=== PATIENT | male | born 1960 | race Caucasian/White ===

== ENCOUNTER 2021-11-21 14:57 | Inpatient (IN) | payer OTHER ==
[~2021-11-21] VITALS: Ht 177.8 cm; Wt 78.5 kg
--- NOTE | 2021-11-21 | NUR ---
RN NOTE RECEIVED PATIENT FROM ER. PATIENT IS ALERT AND ORIENTED X3. ABLE TO MAKE NEEDS KNOWN. UPSET AT THIS TIME HOWEVER COOPERATIVE. BREATHING EVEN AND UNLABORED. NO RESPIRATORY DISTRESS NOTED. DENIES CHEST PAIN AT THIS TIME. HOB ELEVATED 35 DEGREES. SKIN WARM AND DRY. NOTED WITH TWO LEFT FOREARM 20G, PATENT, FLUSHED WITH NO INFILTRATION. NOTED WITH COLOSTOMY ON LEFT LOWER ABDOMEN, NOTED WITH BROWN/SOFT STOOL. NOTED WITH INDWELLING GRANT CATHETER, DRAINING RICHIE YELLOW URINE. NO HEMATURIA NOTED. GRANT INTACT. SKIN ASSESSMENT DONE, IN HOUSE WOUND TREATMENT DONE. WOUND CONSULT ORDERED. PHOTOS FILED IN PATIENT CHART. BED LOW, IN LOCKED POSITION, CALL LIGHT WITHIN REACH. Addendum: 11/22/21 at 0132 by TROY SILVER RN WRONG TIME ENTERED
--- NOTE | 2021-11-21 14:57 | NUR ---
PT [facility]IB [facility]ACHYCARDIA. PT IS AAOX2, NOT IN RESPIRATORY DISTRESS, HOOKED TO SPRAY BLENDER, KEPT RESTED AND COMFORTABLE. WILL CONTINUE TO MONITOR.
--- NOTE | 2021-11-21 15:03 | NUR ---
IV LINE ESTABLISHED BLOOD DRAWN AND SENT TO LAB.
--- NOTE | 2021-11-21 15:38 | NUR ---
AT BEDSIDE FOR EVAL.
[2021-11-21] MEDS ORDERED: MORPHINE SULFATE INJ 2 MG/ML DISP.SYRIN IV ONE ×2 (16:00→20:00)
[2021-11-21] MEDS ORDERED: ONDANSETRON HCL/PF 4 MG/2 ML VIAL IVP ONE (16:00)
[2021-11-21] MEDS ORDERED: ONDANSETRON HCL/PF 4 MG/2 ML VIAL ONE (16:04)
[2021-11-21] MEDS ORDERED: MORPHINE SULFATE INJ 4 MG/ML DISP.SYRIN ONE ×2 (16:05→19:54)
--- NOTE | 2021-11-21 16:05 | NUR ---
BASIN TENDER AT BEDSIDE FOR XRAY.
[2021-11-21 16:18] LABS: BASOPHILS # (AUTO) 0.1 K/uL (0.0-0.2); BASOPHILS % (AUTO) 0.8 % (0.0-2.0); EOSINOPHILS % (AUTO) 1.2 % (0.0-6.0); HEMATOCRIT 27 % (39-51); HEMOGLOBIN 8.2 g/dL (13.5-17.5); LYMPHOCYTES # (AUTO) 1.2 K/uL (0.8-4.8); LYMPHOCYTES % (AUTO) 14.4 % (20.0-44.0); MEAN CORPUSCULAR HGB CONC 30 g/dl (31.0-36.0); MEAN CORPUSCULAR VOLUME 70 fL (80-96); MONOCYTES # (AUTO) 0.5 K/uL (0.1-1.30); NEUTROPHILS # (AUTO) 6.6 K/uL (1.8-8.9); NEUTROPHILS % (AUTO) 77.6 % (43.0-81.0); PLATELET COUNT (AUTO) 659 K/uL (150-450); RED BLOOD CELL COUNT(AUTO) 3.87 MIL/uL (4.5-6.0); WHITE BLOOD COUNT (AUTO) 8.5 K/uL (4.3-11.0)
--- NOTE | 2021-11-21 17:05 | NUR ---
PRINTER'S DEVIL AT BEDSIDE FOR DUPLEX SCAN.
[2021-11-21 17:09] LABS: CALCIUM, SERUM 8.5 mg/dL (8.5-10.1); CARBON DIOXIDE 29 mmol/L (21-32); CHLORIDE 92 mmol/L (98-107); CREATININE 0.5 mg/dL (0.6-1.3); GLUCOSE 130 mg/dL (74-106); POTASSIUM 4.2 mmol/L (3.5-5.1); SODIUM SERUM 127 mmol/L (136-145); UREA NITROGEN, BLOOD 11 mg/dL (7-18)
[2021-11-21 17:10] LABS: D-DIMER 3.55 mg/L(FEU (0.17-0.50)
[2021-11-21 17:25] LABS: ALANINE AMINOTRANSFERASE 23 U/L (12-78); ALKALINE PHOSPHATASE 143 U/L (46-116); ASPARTATE AMINOTRANSFERASE 23 U/L (15-37); BILIRUBIN,DIRECT 0.1 mg/dL (0.0-0.2); BILIRUBIN,TOTAL 0.4 mg/dL (0.2-1.0); TOTAL PROTEIN, SERUM 7.8 g/dL (6.4-8.2)
[2021-11-21 17:29] LABS: ALBUMIN 1.4 g/dL (3.4-5.0)
[2021-11-21] MEDS ORDERED: DILTIAZEM HCL 25 MG IV ONE (18:00)
[2021-11-21] MEDS ORDERED: DILTIAZEM HCL 50 MG IV IV ONE (18:00)
--- NOTE | 2021-11-21 18:25 | NUR ---
MOVE SHEET SUBMITTED AND CALLED FOR TELE BED.
[2021-11-21] MEDS ORDERED: IOHEXOL-350 100 ML VIAL IV ONE (19:39)
[2021-11-21] MEDS ORDERED: IV NS 0.9% 250 ML IV ONE (19:39)
--- NOTE | 2021-11-21 22:06 | NUR ---
tele 107
--- NOTE | 2021-11-21 22:22 | NUR ---
REPORT GIVEN TO ELSA HYDE FOR BOZENA
[2021-11-21] MEDS ORDERED: MAGNESIUM HYDROXIDE 30 ML UDC PO PRN (23:30)
[2021-11-21] MEDS ORDERED: ONDANSETRON HCL/PF 4 MG/2 ML VIAL IVP PRN (23:30)
[2021-11-21] MEDS ORDERED: Z GUARD REMEDY 4 OZ OINT TP PRN (23:30)
[2021-11-21] MEDS ORDERED: MAG HYDROX/AL HYDROX/SIMETH 30 ML UDC PO PRN (23:30)
[2021-11-22] VITALS: BP 104/55
--- NOTE | 2021-11-22 | NUR ---
RN NOTE RECEIVED PATIENT FROM ER. PATIENT IS ALERT AND ORIENTED X3. ABLE TO MAKE NEEDS KNOWN. UPSET AT THIS TIME HOWEVER COOPERATIVE. BREATHING EVEN AND UNLABORED. NO RESPIRATORY DISTRESS NOTED. DENIES CHEST PAIN AT THIS TIME. HOB ELEVATED 35 DEGREES. SKIN WARM AND DRY. NOTED WITH TWO LEFT FOREARM 20G, PATENT, FLUSHED WITH NO INFILTRATION. NOTED WITH COLOSTOMY ON LEFT LOWER ABDOMEN, NOTED WITH BROWN/SOFT STOOL. NOTED WITH INDWELLING GRANT CATHETER, DRAINING RICHIE YELLOW URINE. NO HEMATURIA NOTED. GRANT INTACT. SKIN ASSESSMENT DONE, IN HOUSE WOUND TREATMENT DONE. WOUND CONSULT ORDERED. PHOTOS FILED IN PATIENT CHART. BED LOW, IN LOCKED POSITION, CALL LIGHT WITHIN REACH.
--- NOTE | 2021-11-22 00:01 | NUR ---
RN NOTE PATIENT REFUSED BLOOD DRAW FROM TAPPER BIT
[2021-11-22] MEDS: ENOXAPARIN SODIUM 40 MG/0.4 ML DISP.SYRIN SQ SCH ×2 (00:08→20:27)
[2021-11-22] MEDS: IV NS 0.9% 1,000 ML IV PRN ×2 (00:10→19:46)
[2021-11-22 04:00] VITALS: BP 99/54
--- NOTE | 2021-11-22 05:47 | NUR ---
RN NOTE PATIENT REFUSED AM LABS. EXPLAINED THE REASON FOR BLOOD DRAW 3X WITH MILLINERY DESIGNER AT BEDSIDE. STILL REFUSED. PATIENT BECAME VERBALLY AGGRESSIVE DURING EXPLANATION. MILLINERY DESIGNER WILL RETURN AT A LATER TIME.
--- NOTE | 2021-11-22 07:11 | NUR ---
RN NOTES PATIENT REFUSED BLOOD DRAW. EXPLAINED RISKED AND BENEFITS BUT PATIENT STRONGLY REFUSED. STARTED TO CUSS. DR. ELENA MADE AWARE. PER MD TO ENCOURAGE PATIENT AND EXPLAIN RISK AND BENEFITS. WILL CONTINUE TO ENCOURAGE PATIENT TO ADHERE WITH TREATMENT PLAN.
--- NOTE | 2021-11-22 07:25 | NUR ---
RN OPENING NOTES RECEIVED PATIENT IN BED, AWAKE, ALERT AND VERBALLY RESPONSIVE, NO SIGNS OF ACUTE DISTRESS NOTED. ON ROOM AIR, TOLERATING WELL, NO SOB NOTED. ON TELE MONITOR, SHOWING SINUS TACHYCARDIA, HR @ 108. NO SIGNS OF CARDIAC DISTRESS NOTED. WITH IVF OF NS RUNNING @100ML/HR. IV ACCESS ON LAC AND LFA #20G, INTACT AND PATENT. F/C INTACT DRAINING CLEAR YELLOW URINE. NO C/O PAIN OR DISCOMFORT. SAFETY MEASURE IN PLACE. BED IN LOWEST LOCKED POSITION, SR UP X2, CALL LIGHT PLACED WITHIN EASY REACH. WILL CONTINUE TO MONITOR.
[2021-11-22 08:00] VITALS: BP 104/70
[2021-11-22] MEDS: PANTOPRAZOLE 40 MG TABLET.DR PO SCH (08:08)
[2021-11-22 09:32] LABS: EOSINOPHILS % (MANUAL) 1 % (0-4); LYMPHOCYTES % (MANUAL) 12 % (16-48); MONOCYTES % (MANUAL) 9 % (0-11.0); NEUTROPHILS % (MANUAL) 78 (42-76)
[2021-11-22] MEDS ORDERED: ASCO500T10 PO (10:38)
[2021-11-22] MEDS ORDERED: ATOR40TA PO (10:42)
[2021-11-22] MEDS ORDERED: ENOX40DI SQ (10:45)
[2021-11-22] MEDS ORDERED: FERR325T24 PO (10:48)
[2021-11-22] MEDS ORDERED: FURO40TA5 PO (10:52)
[2021-11-22] MEDS ORDERED: GABA-532 PO (10:55)
[2021-11-22] MEDS ORDERED: MULT-754 PO (10:55)
[2021-11-22] MEDS ORDERED: OMEP40CA21 PO (10:57)
[2021-11-22] MEDS ORDERED: POLY17PO4 PO (10:58)
[2021-11-22] MEDS ORDERED: OXYC5CAP18 PO (11:01)
[2021-11-22] MEDS ORDERED: OXYC10TA49 PO (11:05)
[2021-11-22] MEDS ORDERED: DULO60CA45 PO (11:08)
[2021-11-22] MEDS ORDERED: ACET325C7 PO (11:10)
[2021-11-22] MEDS ORDERED: ZINC454P2 MC (11:14)
--- NOTE | 2021-11-22 11:23 | NUR ---
WOUND CARE CONSULT: PT PRESENTS WITH FOUL, PURULENT PRESSURE ULCERS (STAGE 4) TO SACRUM AND RT AND LEFT BUTTOCKS, PRESENT ON ADMISSION. PT ALSO HAS SCAR TO UPPER BACK AND UNSTAGEABLE ULCER TO RT HIP WELL LOWER EXTREMITY ULCERS/WOUNDS, ALL PRESENT ON ADMISSION. DR HORNE AND DR MCCULLOUGH NOTIFIED OF SURGICAL AND DPM CONSULT REQUESTS. SOME BLEEDING NOTED TO SACRAL AND BUTTOCK WOUNDS. RECOMMENDATIONS MADE FOR SKIN PROTECTION. DISCUSSED WITH NURSING STAFF. FIRST STEP LOW AIRLOSS MATTRESS ORDERED. PT CURSES AT TIMES AND STATES THAT HIS HANDS ARE PAINFUL. EDEMA NOTED. MD IN AGREEMENT WITH PLAN OF CARE.
[2021-11-22 12:00] VITALS: BP 104/66
--- NOTE | 2021-11-22 13:43 | NUR ---
SS Consult: SS consult for multiple pressure ulcers stage 4 infected and quadriplegic. Pt. Is a 61-year-old White male who demonstrates adequate insight to the reason for hospitalization. Per pt., he is admitted to [facility] for quadriplegia. Pt. stated that he has multiple infections. Pt. was oriented x2, alert, and cooperative. Pt. seems to be a bit confused. During interview, pt. was capable of following directions, made appropriate eye-contact, and appeared unkempt. Pt.s speech was at a normal rate and pt.s mood was elevated. Pt. reported no hx of mental health, substance abuse, suicidal ideation, or homicidal ideation. Pt. denies auditory hallucinations, visual hallucinations, paranoia, or delusions. SW explored pt.s living situation. Pt. stated that he is homeless, then stated that he resided at [facility]. Per EMR, pt. is a resident at [facility] [[phone]]. Pt. has no family nor friends out here. Pt. refused to answer any further questions. Plan: SW provided available resources and pt. rejected. SW left resources at bedside. Per CM note, pt. may return to [facility] facility upon discharge. Will follow-up with LATESHA Musa for Ombudsman report. Resources Provided: Senior Empowerment Packet.
[2021-11-22] MEDS: MORPHINE SULFATE INJ 2 MG/ML DISP.SYRIN IV PRN ×2 (14:53→20:28)
[2021-11-22 15:29] LABS: BASOPHILS # (AUTO) 0.1 K/uL (0.0-0.2); BASOPHILS % (AUTO) 0.7 % (0.0-2.0); HEMATOCRIT 23 % (39-51); LYMPHOCYTES % (AUTO) 10.4 % (20.0-44.0); MEAN CORPUSCULAR HGB CONC 30 g/dl (31.0-36.0); MEAN CORPUSCULAR VOLUME 70 fL (80-96); MONOCYTES # (AUTO) 0.8 K/uL (0.1-1.30); MONOCYTES % (AUTO) 7.9 % (2.0-12.0); NEUTROPHILS # (AUTO) 7.8 K/uL (1.8-8.9); PLATELET COUNT (AUTO) 477 K/uL (150-450); RED BLOOD CELL COUNT(AUTO) 3.23 MIL/uL (4.5-6.0); WHITE BLOOD COUNT (AUTO) 9.8 K/uL (4.3-11.0)
[2021-11-22 15:43] LABS: HEMOGLOBIN 6.8 g/dL (13.5-17.5)
[2021-11-22 16:00] VITALS: BP 106/68
[2021-11-22 16:20] LABS: BAND % (MANUAL) 1 % (0.0-5.0); EOSINOPHILS % (MANUAL) 3 % (0-4); LYMPHOCYTES % (MANUAL) 10 % (16-48); MONOCYTES % (MANUAL) 7 % (0-11.0); NEUTROPHILS % (MANUAL) 78 (42-76); REACTIVE LYMPHOCYTES 1 % (0-0)
--- NOTE | 2021-11-22 16:34 | NUR ---
RN NOTES DR. ELENA , MADE AWARE REGARDING LAB RESULT: HGB 6.8. RECEIVED ORDER TO REPEAT H/H STAT.
--- NOTE | 2021-11-22 17:05 | NUR ---
RN NOTES PATIENT REFUSED REPEAT H/H BLOOD DRAW, IN SPITE EXPLANATION OF RISKS. PATIENT STARTED CUSSING. PATIENT STRONGLY REFUSED. DR. ELENA MADE AWARE. PER MD TRY TO ADVISE PATIENT OF RISKS. WILL CONTINUE TO ENCOURAGE PATIENT.
--- NOTE | 2021-11-22 19:00 | NUR ---
RN CLOSING NOTES PATIENT IN BED, AWAKE, ALERT AND VERBALLY RESPONSIVE, NO SIGNS OF ACUTE DISTRESS NOTED. REMAINS ON ROOM AIR, TOLERATING WELL. ON TELE MONITOR, SHOWING SINUS TACHYCARDIA, HR @ 102. NO SIGNS OF CARDIAC DISTRESS NOTED. WITH IVF OF NS RUNNING @100ML/HR. IV ACCESS ON LAC AND LFA #20G, INTACT AND PATENT. F/C INTACT DRAINING CLEAR YELLOW URINE. COLOSTOMY INTACT. SAFETY MEASURES MAINTAINED. BED IN LOWEST LOCKED POSITION, SR UP X2, CALL LIGHT PLACED WITHIN EASY REACH. WILL ENDORSE TO NEXT SHIFT.
[2021-11-22 20:00] VITALS: BP 127/52
[2021-11-22 20:12] LABS: THYROID STIMULATING HORMONE 0.678 uIU/mL (0.358-3.74)
[2021-11-22] MEDS: DAKINS QUARTER STRENGTH (0.125%) 480 ML BOTTLE TOP SCH (23:00)
[2021-11-23] VITALS (10 sets, daily range): BP systolic 93–127; BP diastolic 55–69
[2021-11-23] MEDS: MORPHINE SULFATE INJ 2 MG/ML DISP.SYRIN IV PRN ×2 (03:52→16:13)
[2021-11-23] MEDS: IV NS 0.9% 1,000 ML IV PRN ×2 (05:07→18:16)
[2021-11-23 06:45] LABS: BASOPHILS % (AUTO) 0.3 % (0.0-2.0); EOSINOPHILS % (AUTO) 1.1 % (0.0-6.0); HEMATOCRIT 22 % (39-51); LYMPHOCYTES # (AUTO) 0.9 K/uL (0.8-4.8); LYMPHOCYTES % (AUTO) 8.1 % (20.0-44.0); MEAN CORPUSCULAR HGB CONC 31 g/dl (31.0-36.0); MEAN CORPUSCULAR VOLUME 69 fL (80-96); MONOCYTES # (AUTO) 0.8 K/uL (0.1-1.30); MONOCYTES % (AUTO) 7.1 % (2.0-12.0); NEUTROPHILS # (AUTO) 8.9 K/uL (1.8-8.9); NEUTROPHILS % (AUTO) 83.4 % (43.0-81.0); PLATELET COUNT (AUTO) 590 K/uL (150-450); RED BLOOD CELL COUNT(AUTO) 3.14 MIL/uL (4.5-6.0); WHITE BLOOD COUNT (AUTO) 10.6 K/uL (4.3-11.0)
--- NOTE | 2021-11-23 06:59 | NUR ---
RN notes Resting comfortably in bed with no distress noted. Breathing even and unlabored. On room air tolerating well. Complaining of wound pain, Morphne administered x 2. Vital signs wnl. No significant change of condition. Kept clean and dry. Will endorse to next shift for continuity of care.
[2021-11-23 07:04] LABS: HEMOGLOBIN 6.7 g/dL (13.5-17.5)
[2021-11-23 07:13] LABS: CALCIUM, SERUM 7.6 mg/dL (8.5-10.1); CREATININE 0.4 mg/dL (0.6-1.3); MAGNESIUM 1.5 mg/dL (1.8-2.4); PHOSPHORUS 3.6 mg/dL (2.5-4.9); POTASSIUM 3.1 mmol/L (3.5-5.1)
--- NOTE | 2021-11-23 07:50 | NUR ---
RN OPENING NOTE Patient in bed, awake. A/O x 3. On room air, breathing evenly and unlabored. No SOB or s/s of distress noted. IV access on Left hand infusing NS at 100 ml/hr and LAC SL, intact and patent. Gonsalez catheter in place draining to a yellow colored urine. On tele monitoring showing Sinus tachycardia, HR 101. Safety precautions in place: bed in low, locked position; siderails up x 2; call light within reach. Will continue to monitor.
[2021-11-23 08:03] LABS: THYROID STIMULATING HORMONE 1.044 uIU/mL (0.358-3.74)
[2021-11-23] MEDS: PANTOPRAZOLE 40 MG TABLET.DR PO SCH (08:09)
[2021-11-23] MEDS ORDERED: POTASSIUM CHLORIDE 20 MEQ TAB.PRT.SR PO ONE (09:00)
[2021-11-23] MEDS: Magnesium 1GM/D5W 100ML PREMIX 100 ML IV SCH ×2 (09:25→10:45)
[2021-11-23] MEDS: THERAHONEY GEL 1.5 OZ TUBE TP SCH (09:25)
[2021-11-23] MEDS: DAKINS QUARTER STRENGTH (0.125%) 480 ML BOTTLE TOP SCH (09:25)
--- NOTE | 2021-11-23 15:00 | NUR ---
RN NOTE Patient does not have next of kin to sign blood transfusion consent. Per CM unable to reach next of kin. Notified Dr. Subramanian, he will sign the consent.
--- NOTE | 2021-11-23 18:50 | NUR ---
CARE TRANSITION MGR CLOSING NOTE Patient in bed, resting comfortably. A/O x 2-3, able to make needs known. Stable on room air, breathing evenly and unlabored. No SOB or s/s of distress noted. IV access on SUSANA midline #18G infusing NS at 100 ml/hr. Gonsalez catheter in place draining to a yellow colored urine with an output of 1300 cc. On tele monitoring showing Sinus tachycardia, HR 112. All needs attended to. Due meds given. Wound care done, as ordered. Safety precautions maintained: bed in low, locked position; siderails up x 2; call light within reach. Will endorse to marketing operations assistant nurse for BOZENA. Addendum: 11/23/21 at 1859 by CARLYN LEONG RN ADD: Colostomy on LLQ noted.
[2021-11-23] MEDS: FUROSEMIDE 20 MG/2 ML VIAL IV SCH (20:02)
--- NOTE | 2021-11-23 20:14 | NUR ---
BLOOD TRANSFUSION V/S documented pre blood transfusion. Consent verified in the patient chart. Transfusion verified with 2 RN's. Started 1 unit PRBC co signed by RN Nasim Bourgeois. Will cont to monitor patient.
[2021-11-23] MEDS: ENOXAPARIN SODIUM 40 MG/0.4 ML DISP.SYRIN SQ SCH (22:09)
--- NOTE | 2021-11-23 22:10 | NUR ---
ANTICOUGULANT H/H 6.03/28 PLT 590. No signs of gross bleeding. Lovenox injection given co-signed by BARRETT Bourgeois.
--- NOTE | 2021-11-23 22:59 | NUR ---
BLOOD TRANSFUSION COMPLETED 1 unit PRBC infused. Patient remains in no respiratory distress. No c/o chest pain, chills, afebrile.
[2021-11-23] MEDS: ZOLPIDEM TARTRATE 5 MG TABLET PO PRN (23:43)
[2021-11-24 00:01] VITALS: BP 118/66
[2021-11-24 04:36] VITALS: BP 106/63
--- NOTE | 2021-11-24 05:52 | NUR ---
END OF SHIFT Patient in bed, A/O x3. Uncooperative during care, yell out to staff. Sinus Rhythm in the monitor HR 94, Oxygen sat 94% on room air. SUSANA midline intact, post blood transfusion 1 unit PRBC with no adverse reaction. Wound care dressing done, continue offloading extremities, turned and repositioned. Gonsalez cath in place, good urine output 1100ml. Fall precaution maintained. Will endorse to oncoming RN.
[2021-11-24 08:00] VITALS: BP 106/63
[2021-11-24] MEDS: DAKINS QUARTER STRENGTH (0.125%) 480 ML BOTTLE TOP SCH (09:00)
[2021-11-24] MEDS: THERAHONEY GEL 1.5 OZ TUBE TP SCH (09:00)
[2021-11-24] MEDS: PANTOPRAZOLE 40 MG TABLET.DR PO SCH (10:12)
[2021-11-24] MEDS: FUROSEMIDE 20 MG/2 ML VIAL IV SCH (10:13)
[2021-11-24] MEDS: MORPHINE SULFATE INJ 2 MG/ML DISP.SYRIN IV PRN (10:32)
[2021-11-24] MEDS ORDERED: MAGN400O6 PO (10:54)
[2021-11-24] MEDS ORDERED: FOLI0.4T6 PO (10:54)
[2021-11-24] MEDS ORDERED: AMIN30LI2 PO (10:54)
[2021-11-24] MEDS ORDERED: CALC500T52 PO (10:54)
[2021-11-24] MEDS ORDERED: BISA5TAB10 PO (10:54)
[2021-11-24] MEDS ORDERED: ACET-868 PO (10:54)
[2021-11-24] MEDS ORDERED: MELA3TAB41 PO (10:54)
[2021-11-24] MEDS ORDERED: NYST15PO4 TP (10:54)
[2021-11-24] MEDS ORDERED: FLUT1BLS IH (10:54)
[2021-11-24] MEDS ORDERED: ALBU8.5H8 IH (10:54)
[2021-11-24] MEDS ORDERED: ZINC1CAP2 PO (10:54)
[2021-11-24] MEDS ORDERED: BACL10TA PO (10:54)
[2021-11-24] MEDS ORDERED: SENN-261 PO (10:54)
[2021-11-24 12:00] VITALS: BP 112/60
[2021-11-24 12:24] LABS: BASOPHILS % (AUTO) 0.4 % (0.0-2.0); EOSINOPHILS % (AUTO) 0.4 % (0.0-6.0); HEMATOCRIT 26 % (39-51); HEMOGLOBIN 8.1 g/dL (13.5-17.5); LYMPHOCYTES % (AUTO) 9.7 % (20.0-44.0); MEAN CORPUSCULAR HGB CONC 32 g/dl (31.0-36.0); MEAN CORPUSCULAR VOLUME 70 fL (80-96); MONOCYTES # (AUTO) 0.7 K/uL (0.1-1.30); MONOCYTES % (AUTO) 6.2 % (2.0-12.0); NEUTROPHILS # (AUTO) 8.9 K/uL (1.8-8.9); NEUTROPHILS % (AUTO) 83.3 % (43.0-81.0); PLATELET COUNT (AUTO) 603 K/uL (150-450); RED BLOOD CELL COUNT(AUTO) 3.65 MIL/uL (4.5-6.0); WHITE BLOOD COUNT (AUTO) 10.7 K/uL (4.3-11.0)
[2021-11-24 12:28] LABS: CALCIUM, SERUM 8.8 mg/dL (8.5-10.1); CREATININE 0.4 mg/dL (0.6-1.3); MAGNESIUM 2.3 mg/dL (1.8-2.4); POTASSIUM 3.4 mmol/L (3.5-5.1)
--- NOTE | 2021-11-24 14:43 | NUR ---
RN OPENING NOTES PATIENT IN BED SLEEPING EASY TO AROUSE, ABLE TO MAKE NEEDS KNOW, A/O x3. TELE BOX IN PLACE INTACT READING SINUS RHYTHM AND HEART RATE IS AT 90 , OXYGEN SAT BETWEEN 94-98% FLUCTUATING, SUSANA MIDLINE INTACT, NO ADVERSE SIDE EFFECTS NOTED TO TREATMENT AT THIS TIME, WOUND CARE DRESSING CHANGED CLEANSED AND CARED FOR, REPOSITIONED PT Q 2 HOURS OR MORE PT CAN REPOSITION SELF, F/C IN PLACE AND DRAINING PROPERLY, 2,000 ML DRAINED DURING AM SHIFT UP TO THIS TIME, PT ON FALL PROCAUTIONS AND WILL MONITOR FOR ALL NEEDS TO ENSURE SAFETY. CALL LIGHT IN REACH, SAFETY PROTOCOLS IN PLACE BED LOW TO FLOOR, WHEELS LOCKED.
[2021-11-24 16:00] VITALS: BP 104/62
[2021-11-24] MEDS ORDERED: NYSTATIN TOP POWDER 15 GM BOTTLE TP PRN (18:00)
[2021-11-24] MEDS ORDERED: MAGNESIUM HYDROXIDE 30 ML UDC PO PRN (18:00)
[2021-11-24] MEDS ORDERED: ACETAMINOPHEN 325 MG TABLET PO PRN (18:00)
[2021-11-24] MEDS ORDERED: BACLOFEN (10 MG) 10 MG TABLET PO PRN (18:00)
[2021-11-24] MEDS ORDERED: oxyCODONE IR immediate release 5 MG PO PRN (18:00)
[2021-11-24] MEDS ORDERED: BISACODYL (5 MG) 5 MG TABLET.DR PO PRN (18:00)
[2021-11-24] MEDS ORDERED: ALBUTEROL FS 2.5 MG/0.5 ML VIAL.NEB IH PRN (18:30)
[2021-11-24 20:00] VITALS: BP 127/81
[2021-11-24] MEDS: ATORVASTATIN 40 MG TABLET PO SCH (21:52)
[2021-11-24] MEDS: SENNOSIDES 8.6 MG TABLET PO SCH (21:52)
[2021-11-24] MEDS: GABAPENTIN 300 MG CAPSULE PO SCH (21:52)
[2021-11-24] MEDS: ENOXAPARIN SODIUM 40 MG/0.4 ML DISP.SYRIN SQ SCH (21:53)
[2021-11-24] MEDS ORDERED: Medication Not On Formulary EA (Melatonin 3 MG) PO SCH (22:00)
[2021-11-25] MEDS: IV NS 0.9% 1,000 ML IV PRN ×2 (00:51→12:21)
[2021-11-25] MEDS: HYDROCODONE/APAP 5/325MG TABLET PO PRN (00:52)
[2021-11-25 01:40] VITALS: BP 104/65
[2021-11-25 04:00] VITALS: BP 107/61
[2021-11-25] MEDS ORDERED: Medication Not On Formulary EA (Omeprazole 40 MG) PO SCH (07:30)
--- NOTE | 2021-11-25 07:30 | NUR ---
PATIENT RECEIVED RESTING COMFORTABLY IN BED. NO S/S OR C/O PAIN OR DISTRESS NOTED. SIDE RAILS UP X2, CALL LIGHT LEFT WITHIN REACH. WILL CONTINUE PLAN OF CARE.
--- NOTE | 2021-11-25 07:50 | NUR ---
RN CLOSING NOTES, PATIENT RESTING IN BED, AT ROOM AIR , NO SOB/ NO SIGNS OF RESPIRATORY DISTRESS, WITH OPTIMAL O2 SAT LEVEL, NO SIGNIFICANT CHANGE IN CONDITION, CALL LIGHT WITHIN REACH, ALL NEEDS PROVIDED, PATIENT KEPT CLEAN, EXTENSIVE WOUND TREATMENT DONE, WILL ENDORSE CONTINUITY OF CARE TO ONCOMING NURSE.
[2021-11-25 08:00] VITALS: BP 115/55
[2021-11-25] MEDS: FLUTICASONE/VILANTEROL 1 EACH BLST.W.DEV IH SCH (09:18)
[2021-11-25] MEDS: POLYETHYLENE GLYCOL 3350 17 GM POWD.PACK PO SCH (09:20)
[2021-11-25] MEDS: CALCIUM CARBONATE (1250) 500 MG TABLET PO SCH (09:20)
[2021-11-25] MEDS: ASCORBIC ACID 500 MG TABLET PO SCH (09:20)
[2021-11-25] MEDS: PANTOPRAZOLE 40 MG TABLET.DR PO SCH (09:20)
[2021-11-25] MEDS: MULTIVITAMINS,THERAGRAN 1 UDTAB TABLET PO SCH (09:21)
[2021-11-25] MEDS: DULOXETINE HCL 30 MG CAPSULE.DR PO SCH (09:21)
[2021-11-25] MEDS: FUROSEMIDE 20 MG/2 ML VIAL IV SCH (09:21)
[2021-11-25] MEDS: GABAPENTIN 300 MG CAPSULE PO SCH ×4 (09:21→21:43)
[2021-11-25] MEDS: FERROUS SULFATE (325 MG) 325 MG/TAB TABLET PO SCH ×3 (09:21→16:15)
[2021-11-25] MEDS: FOLIC ACID 1 MG TABLET PO SCH (09:22)
[2021-11-25] MEDS: ZINC SULFATE 220 MG CAPSULE PO SCH (09:22)
[2021-11-25] MEDS: PROSOURCE / PROSTAT (PYXIS) 30 ML UDC PO SCH ×3 (09:25→16:17)
[2021-11-25] MEDS: DAKINS QUARTER STRENGTH (0.125%) 480 ML BOTTLE TOP SCH (09:42)
[2021-11-25] MEDS: THERAHONEY GEL 1.5 OZ TUBE TP SCH (09:42)
[2021-11-25 12:00] VITALS: BP 95/56
[2021-11-25 13:34] LABS: CALCIUM, SERUM 7.9 mg/dL (8.5-10.1); CREATININE 0.4 mg/dL (0.6-1.3); POTASSIUM 3.4 mmol/L (3.5-5.1)
[2021-11-25 14:07] LABS: *SPE A/G RATIO 0.2 (0.7-1.7); *SPE ALPHA-1-GLOBULIN 0.5 g/dL (0.0-0.4); *SPE ALPHA-2-GLOBULIN 0.8 g/dL (0.4-1.0); *SPE BETA GLOBULIN 3.2 g/dL (0.7-1.3); *SPE M-SPIKE 2.4 g/dL (Not Observed)
[2021-11-25 14:44] LABS: BASOPHILS # (AUTO) 0.1 K/uL (0.0-0.2); BASOPHILS % (AUTO) 0.5 % (0.0-2.0); EOSINOPHILS % (AUTO) 0.7 % (0.0-6.0); HEMATOCRIT 28 % (39-51); HEMOGLOBIN 8.5 g/dL (13.5-17.5); LYMPHOCYTES # (AUTO) 1.1 K/uL (0.8-4.8); LYMPHOCYTES % (AUTO) 8.5 % (20.0-44.0); MEAN CORPUSCULAR HGB CONC 30 g/dl (31.0-36.0); MEAN CORPUSCULAR VOLUME 72 fL (80-96); MONOCYTES # (AUTO) 0.9 K/uL (0.1-1.30); MONOCYTES % (AUTO) 6.6 % (2.0-12.0); NEUTROPHILS # (AUTO) 10.8 K/uL (1.8-8.9); NEUTROPHILS % (AUTO) 83.7 % (43.0-81.0); RED BLOOD CELL COUNT(AUTO) 3.93 MIL/uL (4.5-6.0); WHITE BLOOD COUNT (AUTO) 12.9 K/uL (4.3-11.0)
[2021-11-25] MEDS: POTASSIUM CHLORIDE 20 MEQ TAB.PRT.SR PO SCH ×2 (15:00→16:15)
[2021-11-25 15:18] LABS: EOSINOPHILS % (MANUAL) 1 % (0-4); LYMPHOCYTES % (MANUAL) 8 % (16-48); MONOCYTES % (MANUAL) 5 % (0-11.0); NEUTROPHILS % (MANUAL) 86 (42-76)
[2021-11-25 15:20] LABS: PLATELET COUNT (AUTO) 613 K/uL (150-450)
[2021-11-25 16:00] VITALS: BP 105/65
--- NOTE | 2021-11-25 18:33 | NUR ---
CHANGE OF SHIFT REPORT PT RESTING COMFORTABLY IN BED. NO S/S OR C/O PAIN OR DISTRESS NOTED. SIDE RAILS UP X2, CALL LIGHT LEFT WITHIN REACH. PT KEPT CLEAN, DRY, AND COMFORTABLE. NO SIGNIFICANT CHANGES SINCE PREVIOUS SHIFT. WILL GIVE REPORT TO KARELY HYDE.
--- NOTE | 2021-11-25 19:57 | NUR ---
RN OPENING NOTES RECEIVED CARE OF PATIENT WHILE PATIENT IN BED, A/O X3, ABLE TP VERBALIZE NEEDS. PATIENT IN NO DISCOMFORT OR PAIN AT THIS TIME. PATIENT ON ON ROOM AIR, O2 SAT 95%, BREATHING EVEN AND UNLABORED, NO SOB NOTED. PATIENT ON TELE MONITOR SHOWING SINUS TACH WITH HR OF 104, NO DISTRESS NOTED ON PATIENT. SUSANA MIDLINE INTACT, FLUSHING WELL. WILL PERFORM WOUND CARE ORDERED. WILL REPOSITION Q2H. APPROPRIATE SAFETY MEASURES IN PLACE, CALL LIGHT IN REACH, SAFETY PROTOCOLS IN PLACE, BED LOW TO FLOOR, WHEELS LOCKED. WILL CONTINUE TO MONITOR PATIENT.
[2021-11-25 20:00] VITALS: BP 114/70
[2021-11-25] MEDS: ATORVASTATIN 40 MG TABLET PO SCH (21:44)
[2021-11-25] MEDS: SENNOSIDES 8.6 MG TABLET PO SCH (21:44)
[2021-11-25] MEDS: ENOXAPARIN SODIUM 40 MG/0.4 ML DISP.SYRIN SQ SCH (21:47)
[2021-11-25] MEDS ORDERED: SILVER NITRATE APPLICATOR 1 EA BOX TP SCH (22:30)
[2021-11-25] MEDS ORDERED: LIDOCAINE 1%-EPI 1:100,000 20 ML VIAL TP ONE (22:30)
[2021-11-26] VITALS: BP 112/73
--- NOTE | 2021-11-26 00:18 | NUR ---
RN NOTES PATIENT NOTED WITH TEMP OF 101.4, SKIN WARM TO TOUCH. PATIENT NOTED WITH MULTIPLE WOUNDS, NO ANTIBIOTICS ON PATIENT'S EMAR. DR. VANN MADE AWARE. ORDER TO DO BLOOD CULTURES X2, START VANCOMYCIN AND ZOSYN WITH PHARMACY TO DOSE, THEN ADMINISTER TYLENOL 650MG PRN FOR FEVER. WILL CARRY OUT ORDERS AND CONTINUE TO MONITOR PATIENT.
--- NOTE | 2021-11-26 00:37 | NUR ---
RN NOTES PATIENT A/O X4, PATIENT REFUSING BLOOD CULTURES. EDUCATION WAS PROVIDED ON IMPORTANCE OF BLOOD CULTURES, PATIENT REFUSES. DR. VANN MADE AWARE. WILL BEGIN COOLING MEASURES AND ADMINISTER TYLENOL 650MG PRN FOR FEVER. WILL CONTINUE TO MONITOR PATIENT.
[2021-11-26] MEDS: ACETAMINOPHEN 325 MG TABLET PO PRN (00:42)
[2021-11-26] MEDS ORDERED: PIPERACILLIN /TAZOBACTAM 2.25 G VIAL IV ONE (00:46)
[2021-11-26] MEDS ORDERED: VANCOMYCIN 1 GM VIAL ONE (00:47)
[2021-11-26] MEDS ORDERED: ZOSYN IVPB 4.5 G in IV D5W 50ml IV ONE (01:00)
[2021-11-26] MEDS ORDERED: VANCOMYCIN 1.5 GM in IV D5W 500ml IV ONE (01:00)
[2021-11-26] MEDS: ZOLPIDEM TARTRATE 5 MG TABLET PO PRN ×2 (01:21→22:42)
[2021-11-26] MEDS: IV NS 0.9% 1,000 ML IV PRN (01:21)
[2021-11-26] MEDS: MORPHINE SULFATE INJ 2 MG/ML DISP.SYRIN IV PRN ×2 (01:22→10:20)
[2021-11-26 04:00] VITALS: BP 105/62
[2021-11-26] MEDS: PIPERACILLIN /TAZOBACTAM 3.375 G in IV D5W 100 ML IV SCH ×3 (07:15→21:00)
--- NOTE | 2021-11-26 07:25 | NUR ---
RN CLOSING NOTES ENDORSED CARE OF PATIENT TO AM NURSE WHILE PATIENT IN BED,A/O X4, ABLE TO VERBALIZE NEEDS. ON ROOM AIR, NO RESPIRATORY ISSUES NOTED THROUGHOUT SHIFT. COOLING MEASURES IMPLEMENTED THROUGHOUT SHIFT. WOUND CARE DONE ORDERED. CONSENT FOR DEBRIDEMENT OBTAINED. ALL NEEDS ATTENDED TO. ALL DUE MEDS GIVEN. BED IS LOCKED IN LOWEST POSITION AND ALL HOSPITAL PRECAUTIONS ARE IN PLACE. ENDORSED TO AM NURSE FOR BOZENA.
[2021-11-26 08:00] VITALS: BP 108/66
[2021-11-26] MEDS: FERROUS SULFATE (325 MG) 325 MG/TAB TABLET PO SCH ×3 (08:55→17:28)
[2021-11-26] MEDS: VANCOMYCIN 1 GM in IV D5W 250ml IV SCH ×4 (08:55→23:42)
[2021-11-26] MEDS: CALCIUM CARBONATE (1250) 500 MG TABLET PO SCH (08:56)
[2021-11-26] MEDS: POLYETHYLENE GLYCOL 3350 17 GM POWD.PACK PO SCH (08:56)
[2021-11-26] MEDS: GABAPENTIN 300 MG CAPSULE PO SCH ×4 (08:56→21:48)
[2021-11-26] MEDS: FOLIC ACID 1 MG TABLET PO SCH (08:56)
[2021-11-26] MEDS: MULTIVITAMINS,THERAGRAN 1 UDTAB TABLET PO SCH (08:56)
[2021-11-26] MEDS: ZINC SULFATE 220 MG CAPSULE PO SCH (08:56)
[2021-11-26] MEDS: ASCORBIC ACID 500 MG TABLET PO SCH (08:56)
[2021-11-26] MEDS: FUROSEMIDE 20 MG/2 ML VIAL IV SCH (08:56)
[2021-11-26] MEDS: DULOXETINE HCL 30 MG CAPSULE.DR PO SCH (08:57)
[2021-11-26] MEDS: PROSOURCE / PROSTAT (PYXIS) 30 ML UDC PO SCH ×3 (08:57→17:28)
[2021-11-26] MEDS: THERAHONEY GEL 1.5 OZ TUBE TP SCH (08:58)
[2021-11-26] MEDS: DAKINS QUARTER STRENGTH (0.125%) 480 ML BOTTLE TOP SCH (08:58)
[2021-11-26] MEDS: PANTOPRAZOLE 40 MG TABLET.DR PO SCH (09:00)
[2021-11-26 12:00] VITALS: BP 101/56
--- NOTE | 2021-11-26 12:00 | NUR ---
RN NOTE PARDEEP SYKES AT BEDSIDE. PT REFUSING SERIAL DEBRIDEMENT
[2021-11-26] MEDS: ENSURE ENLIVE 237 ML LIQUID (VANILLA) PO SCH ×2 (12:43→17:30)
[2021-11-26] MEDS: HYDROCODONE/APAP 5/325MG TABLET PO PRN ×2 (15:07→22:42)
[2021-11-26 16:00] VITALS: BP 100/57
--- NOTE | 2021-11-26 16:59 | NUR ---
SS Note: Dr. Hewitt requested Bioethics meeting for this patient. ELIN called the pt.'s [facility]: and spoke to Porsche who stated that the pt. was only residing there for a week. Per Porsche there is no family os responsible democrat for this patient. SW met with pt. bedside and pt. is alert & oriented x4 and also states there is no responsible democrat or family. ELIN discussed with Dr. Hewitt and he would like Dr. Ross Swain to have aa discussion with pt. regarding his wishes an follow up accordingly. ELIN notified Ross Swain DNP. SW will be available as needed.
--- NOTE | 2021-11-26 18:00 | NUR ---
RN NOTE FORGOT TO SCAN 1300 ZOZYN. GIVEN AT 1300
--- NOTE | 2021-11-26 18:00 | NUR ---
RN NOTE PT RIGHT ARM SWOLLEN. STOPPED 100CC NS. DR. MANDUJANO AWARE. ORDERED URE VENOUS DOPPLER. PT DECLINING IV ACCESS.
--- NOTE | 2021-11-26 19:15 | NUR ---
RN NOTE PT A/OX4. CHANGED DRESSINGS OF SACRAL WOUND WITH HELP OF KAREN SANUDERS. PT ON RA SAT >98%. NO BOZENA. PT STILL REFUSING IV ACCESS. WILL ENDORSE TO NOC RN
--- NOTE | 2021-11-26 19:40 | NUR ---
RN OPENING NOTES RECEIVED CARE OF PATIENT WHILE PATIENT IN BED, A/O X4, ABLE To VERBALIZE NEEDS. PATIENT IN NO DISCOMFORT OR PAIN AT THIS TIME. AM NURSE ENDORSED THAT ALTHOUGH PATIENT HAD INITIALLY VERBALLY CONSENTED TO SERIAL DEBRIDEMENT OF SACRUM AND BUTTOCKS, PATIENT LATER CHANGED HIS MIND AND REFUSED CONSENT FOR THE PROCEDURE. PATIENT IS CURRENTLY ON ROOM AIR, O2 SAT 97%, BREATHING EVEN AND UNLABORED, NO SOB NOTED. PATIENT ON TELE MONITOR SHOWING SINUS TACH WITH HR OF 104, NO DISTRESS NOTED ON PATIENT. SUSANA MIDLINE OCCLUDED, PATIENT REFUSES INSERTION OF NEW IV ACCESS, MD MADE AWARE BY AM NURSE. WILL PERFORM WOUND CARE ORDERED. WILL REPOSITION Q2H. APPROPRIATE SAFETY MEASURES IN PLACE, CALL LIGHT IN REACH, SAFETY PROTOCOLS IN PLACE, BED LOW TO FLOOR, WHEELS LOCKED. WILL CONTINUE TO MONITOR PATIENT.
[2021-11-26 20:00] VITALS: BP 155/70
--- NOTE | 2021-11-26 20:00 | NUR ---
RN NOTES SUSANA MIDLINE FOUND OCCLUDED, DOES NOT FLUSH. PATIENT REFUSES INSERTION OF NEW IV ACCESS. EDUCATION WAS PROVIDED ON IMPORTANCE OF HAVING IV ACCESS, PATIENT REMAINS FIRM ON REFUSAL. UNABLE TO ADMINISTER ALL IV MEDICATIONS DUE TO PATIENT NOT HAVING A PATENT IV ACCESS. WILL CONTINUE TO MONITOR PATIENT AND EDUCATE ON IMPORTANCE OF IV ACCESS.
[2021-11-26] MEDS: ATORVASTATIN 40 MG TABLET PO SCH (21:48)
[2021-11-26] MEDS: SENNOSIDES 8.6 MG TABLET PO SCH (21:48)
[2021-11-26] MEDS: ENOXAPARIN SODIUM 40 MG/0.4 ML DISP.SYRIN SQ SCH (21:50)
[2021-11-26] MEDS: oxyCODONE IR immediate release 5 MG PO PRN (23:03)
[2021-11-27] VITALS: BP 145/71
[2021-11-27 04:00] VITALS: BP 128/71
[2021-11-27] MEDS: PIPERACILLIN /TAZOBACTAM 3.375 G in IV D5W 100 ML IV SCH ×3 (05:00→21:05)
--- NOTE | 2021-11-27 06:17 | NUR ---
RN CLOSING NOTES WILL ENDORSE CARE OF PATIENT TO AM NURSE WHILE PATIENT IN BED,A/O X4, ABLE TO VERBALIZE NEEDS. ON ROOM AIR, NO RESPIRATORY ISSUES NOTED THROUGHOUT SHIFT. COOLING MEASURES IMPLEMENTED THROUGHOUT SHIFT FOR ELEVATED TEMP IN THE HIGH 90'S. ALL NEEDS ATTENDED TO. ALL DUE MEDS GIVEN. SAFETY MEASURES RENDERED ACCORDING TO HOSPITAL PROTOCOL. BED IS LOCKED IN LOWEST POSITION AND ALL HOSPITAL PRECAUTIONS ARE IN PLACE. WILL ENDORSE TO AM NURSE FOR BOZENA.
--- NOTE | 2021-11-27 07:59 | NUR ---
RN NOTE PATIENT RECEIVED IN BED, AO X 4, IN NO ACUTE DISTRESS NOTED. RESPIRATORY EVEN AND UNLABORED ON ROOM. SKIN IS WARM TO TOUCH, KEEP CLEAN/DRY, INTACT IV SITE. GRANT CATH CONNECTING URINE BAG. KEPT ELEVATED HOB FOR ENSURE AIRWAY AND ASPIRATION PRECAUTION, ALSO LOWEST POSITION OF THE BED, S/R UP X 3 FOR SAFETY. ALL SAFETY PRECAUTION APPLIED. CALL LIGHT WITHIN REACH, WILL CONTINUE TO MONITOR.
[2021-11-27 08:00] VITALS: BP 104/67
[2021-11-27] MEDS: VANCOMYCIN 1 GM in IV D5W 250ml IV SCH ×2 (08:00→17:41)
[2021-11-27] MEDS: MULTIVITAMINS,THERAGRAN 1 UDTAB TABLET PO SCH (09:46)
[2021-11-27] MEDS: PROSOURCE / PROSTAT (PYXIS) 30 ML UDC PO SCH ×3 (09:46→16:13)
[2021-11-27] MEDS: POLYETHYLENE GLYCOL 3350 17 GM POWD.PACK PO SCH (09:46)
[2021-11-27] MEDS: PANTOPRAZOLE 40 MG TABLET.DR PO SCH (09:46)
[2021-11-27] MEDS: ZINC SULFATE 220 MG CAPSULE PO SCH (09:47)
[2021-11-27] MEDS: DULOXETINE HCL 30 MG CAPSULE.DR PO SCH (09:47)
[2021-11-27] MEDS: CALCIUM CARBONATE (1250) 500 MG TABLET PO SCH (09:47)
[2021-11-27] MEDS: ASCORBIC ACID 500 MG TABLET PO SCH (09:47)
[2021-11-27] MEDS: POTASSIUM CHLORIDE 20 MEQ TAB.PRT.SR PO SCH ×2 (09:47→10:00)
[2021-11-27] MEDS: FOLIC ACID 1 MG TABLET PO SCH (09:47)
[2021-11-27] MEDS: GABAPENTIN 300 MG CAPSULE PO SCH ×4 (09:47→21:01)
[2021-11-27] MEDS: ENSURE ENLIVE 237 ML LIQUID (VANILLA) PO SCH ×2 (09:48→17:40)
[2021-11-27] MEDS: THERAHONEY GEL 1.5 OZ TUBE TP SCH (09:49)
--- NOTE | 2021-11-27 10:24 | NUR ---
PATIENT REFUSED IV AND MIDLINE INSERTION, AND NO IV CONNECTION SO FAR. PATIENT HAS VANCOMYCIN THIS MORNING BUT UNABLE TO ADMINISTER MEDS. INFORMED MD REGARDING ABOVE.
[2021-11-27] MEDS: DIVALPROEX SODIUM 250 MG TABLET.DR PO SCH ×2 (11:54→21:01)
[2021-11-27] MEDS: DAKINS QUARTER STRENGTH (0.125%) 480 ML BOTTLE TOP SCH (11:57)
[2021-11-27 12:00] VITALS: BP 111/71
[2021-11-27] MEDS ORDERED: POTASSIUM CHLORIDE 20 MEQ TAB.PRT.SR PO ONE (12:00)
[2021-11-27] MEDS: FLUTICASONE/VILANTEROL 1 EACH BLST.W.DEV IH SCH ×2 (12:16→12:18)
[2021-11-27] MEDS ORDERED: COLL30OI TP (14:41)
[2021-11-27] MEDS ORDERED: DOXY100C2 PO (14:41)
[2021-11-27] MEDS ORDERED: SODI473S8 TOP (14:41)
[2021-11-27] MEDS ORDERED: DIVA250T4 PO (14:41)
[2021-11-27] MEDS ORDERED: METO50TA16 PO (14:41)
[2021-11-27] MEDS ORDERED: CEFE2FRO IV (14:41)
[2021-11-27] MEDS: METOPROLOL TARTRATE 50 MG TABLET PO SCH ×2 (15:35→21:01)
[2021-11-27] MEDS: oxyCODONE IR immediate release 5 MG PO PRN (16:14)
--- NOTE | 2021-11-27 17:58 | NUR ---
PATIENT UNABLE TO BE DISCHARGE PER CM NO FACILITY TO ACCEPT,WILL FF. UP IN AM, NOTIFIED.
[2021-11-27 18:00] VITALS: BP 130/80
--- NOTE | 2021-11-27 18:00 | NUR ---
PATIENT HELD DISCHARGE ORDER DUE TO LOST BED, CM WORKING ON OTHER FACILITY.
--- NOTE | 2021-11-27 18:59 | NUR ---
RN CLOSING NOTE PATENT IN BED, REMAINS AO X4, IN NO ACUTE DISTRESS OBSERVED. RESPIRATORY EVEN AND UNLABORED ON ROOM AIR. SKIN IS WARM TO TOUCH KEEP CLEAN/DRY, INTACT IV SITE. GRANT CATH CONNECTING TO THE URINE BAG, 1500ML OUT PUT. KEPT ELEVATE HOB FOR ASPIRATION PRECAUTION AND ENSURE AIRWAY, ALSO LOWEST POSITION OF THE BED FOR SAFETY. CALL LIGHT WITHIN REACH, WILL ENDORSE TO PIT SUPERVISOR.
[2021-11-27 20:00] VITALS: BP 113/69
[2021-11-27] MEDS: SENNOSIDES 8.6 MG TABLET PO SCH (21:02)
[2021-11-27] MEDS: ACETAMINOPHEN 325 MG TABLET PO PRN (21:02)
[2021-11-27] MEDS: QUETIAPINE FUMARATE 25 MG TABLET PO SCH (21:02)
[2021-11-27] MEDS: ENOXAPARIN SODIUM 40 MG/0.4 ML DISP.SYRIN SQ SCH (21:04)
--- NOTE | 2021-11-28 00:20 | NUR ---
Patient's temp was 100.5 at 1999 but after PRN tylenol admin temp went down to 97.4 taken both orally and axillary.
[2021-11-28] MEDS: VANCOMYCIN 1 GM in IV D5W 250ml IV SCH ×4 (01:10→17:25)
[2021-11-28 04:00] VITALS: BP 119/69
[2021-11-28] MEDS: PIPERACILLIN /TAZOBACTAM 3.375 G in IV D5W 100 ML IV SCH ×3 (04:17→21:45)
--- NOTE | 2021-11-28 06:51 | NUR ---
RN CLOSING NOTES Patient had fever at beginning of shift 100.5 and was sweating. Fever resolved with PRN tylenol. A&Ox3. Allowed wound care and bed bath, allowed for labs -mostly cooperative overnight; though pt. is short-tempered. SUSANA midline flushed and patent. Currently resting in bed with no signs of distress.
[2021-11-28 07:38] LABS: CALCIUM, SERUM 8.5 mg/dL (8.5-10.1); CREATININE 0.5 mg/dL (0.6-1.3); POTASSIUM 4.4 mmol/L (3.5-5.1)
--- NOTE | 2021-11-28 07:43 | NUR ---
RN OPENING NOTE- PATENT IN BED, REMAINS AO X4, IN NO ACUTE DISTRESS OBSERVED. RESPIRATIONS EVEN AND NON-LABORED ON ROOM AIR. SKIN IS WARM TO TOUCH KEEP CLEAN/DRY, INTACT IV SITE. GRANT CATHETER TO GRAVITY. HOB ELEVATED, FOR ASPIRATION PRECAUTIONS , ALSO LOWEST POSITION OF THE BED FOR SAFETY. CALL LIGHT WITHIN REACH.
[2021-11-28] MEDS: PANTOPRAZOLE 40 MG TABLET.DR PO SCH (07:57)
[2021-11-28] MEDS: ENSURE ENLIVE 237 ML LIQUID (VANILLA) PO SCH ×2 (08:03→17:26)
--- NOTE | 2021-11-28 08:22 | NUR ---
RN NOTE- SUSANA IV MIDLINE APPEARS TO HAVE INFILTRATED / OCCLUDED. SUSANA EDEMATOUS. IV STOPPED. NETWORK SUPPORT TECHNICIAN NOTIFIED. COMFORT MEASURES INITIATED
--- NOTE | 2021-11-28 08:23 | NUR ---
RN NOTE- MORNING VANCO DOSE NOT GIVEN DUE TO EDEMATOUS SUSANA. AWARE. MIDLINE RN TO ASSESS
[2021-11-28] MEDS: CALCIUM CARBONATE (1250) 500 MG TABLET PO SCH (08:28)
[2021-11-28] MEDS: ASCORBIC ACID 500 MG TABLET PO SCH (08:28)
[2021-11-28] MEDS: GABAPENTIN 300 MG CAPSULE PO SCH ×4 (08:28→21:46)
[2021-11-28] MEDS: ZINC SULFATE 220 MG CAPSULE PO SCH (08:29)
[2021-11-28] MEDS: oxyCODONE IR immediate release 5 MG PO PRN ×2 (08:29→15:46)
[2021-11-28] MEDS: MULTIVITAMINS,THERAGRAN 1 UDTAB TABLET PO SCH (08:29)
[2021-11-28] MEDS: FOLIC ACID 1 MG TABLET PO SCH (08:29)
[2021-11-28] MEDS: FLUTICASONE/VILANTEROL 1 EACH BLST.W.DEV IH SCH (08:29)
[2021-11-28] MEDS: METOPROLOL TARTRATE 50 MG TABLET PO SCH ×2 (08:29→21:45)
[2021-11-28] MEDS: QUETIAPINE FUMARATE 25 MG TABLET PO SCH ×2 (08:29→21:46)
[2021-11-28] MEDS: DULOXETINE HCL 30 MG CAPSULE.DR PO SCH (08:29)
[2021-11-28] MEDS: DIVALPROEX SODIUM 250 MG TABLET.DR PO SCH ×2 (08:29→21:46)
[2021-11-28] MEDS: PROSOURCE / PROSTAT (PYXIS) 30 ML UDC PO SCH ×3 (08:30→17:26)
[2021-11-28] MEDS: POLYETHYLENE GLYCOL 3350 17 GM POWD.PACK PO SCH (08:30)
[2021-11-28] MEDS: DAKINS QUARTER STRENGTH (0.125%) 480 ML BOTTLE TOP SCH (08:37)
[2021-11-28] MEDS: THERAHONEY GEL 1.5 OZ TUBE TP SCH (08:37)
[2021-11-28 12:00] VITALS: BP 98/58
--- NOTE | 2021-11-28 12:00 | NUR ---
RN NOTE- WOUND CARE COMPLETED TO GUMARO ROMANO AT BEDSIDE. WOUND W NECROSIS TO LEFT HEEL, PURULENCE AND ODOR. BETADINE PACKED, WRAPPED W ABD AND KERLIX.
--- NOTE | 2021-11-28 12:36 | NUR ---
RN NOTE- IV SITE PENDING NEW MIDLINE INSERTION AT 1500. ZOSYN HELD AT PRESENT
--- NOTE | 2021-11-28 16:24 | NUR ---
RN NOTE- SACRAL WOUND CARE COMPLETED AT THIS TIME. DAKINS SOAKED 4X4 DRESSINGS APPLIED, COVERED W ABD AND TAPED SECURELY .TOLERATED WELL.
--- NOTE | 2021-11-28 16:42 | NUR ---
RN NOTE- MIDLINE BARRETT TORRES ASSESSED SUSANA MIDLINE. OBTAINED BLOOD RETURN,. ORDERED VENOUS DOPPLER SUSANA. WILL NOTIFY JOSH ARZATE. OK TO USE SUSANA MIDLINE PER DATA PROCESSING SYSTEMS CONSULTANT.
--- NOTE | 2021-11-28 18:40 | NUR ---
RN CLOSING NOTE- PT OPPOSITIONAL AT TIMES. PATENT IN BED, REMAINS AO X4, IN NO ACUTE DISTRESS OBSERVED. RESPIRATIONS EVEN AND NON-LABORED ON ROOM AIR. SKIN IS WARM TO TOUCH KEEP CLEAN/DRY, INTACT IV SITE. GRANT CATHETER TO GRAVITY. MIDLINE SUSANA PATENT AND IN USE. VENOUS DOPPLER RESULTS PENDING SUSANA. HOB ELEVATED, FOR ASPIRATION PRECAUTIONS , ALSO LOWEST POSITION OF THE BED FOR SAFETY. CALL LIGHT WITHIN REACH.
[2021-11-28 20:00] VITALS: BP 114/65
--- NOTE | 2021-11-28 20:00 | NUR ---
MS RN NOTE PATIENT AWAKE IN BED, ALERT/ORIENTED X 3. PT STABLE ON RA, NO S/S OF DISTRESS OR SOB NOTED, BREATHING EVEN AND UNLABORED. SUSANA MIDLINE INTACT, NO SIGNS OF DVT ON VENOUS DOPPLER, OKAY TO USE PER MIDLINE RN. GRANT CATHETER IN PLACE AND DRAINING WELL. PROVIDED FLUIDS TO PATIENT. SAFETY MEASURES IN PLACED: CALL LIGHT WITHIN REACH, SIDE RAILS UP X 3, BED LOCKED IN LOW POSITION, HOB ELEVATED, BED ALARM ON. WILL CONTINUE TO MONITOR PATIENT
[2021-11-28] MEDS: SENNOSIDES 8.6 MG TABLET PO SCH (21:46)
[2021-11-28] MEDS: ENOXAPARIN SODIUM 40 MG/0.4 ML DISP.SYRIN SQ SCH (21:51)
[2021-11-29] MEDS: VANCOMYCIN 1 GM in IV D5W 250ml IV SCH ×2 (01:51→08:21)
--- NOTE | 2021-11-29 01:52 | NUR ---
MS RN NOTE IV VANCO GIVEN LATE BECAUSE ZOSYN IV MEDICATION WAS INFUSING FOR 4 HOURS
[2021-11-29 04:00] VITALS: BP 111/62
[2021-11-29] MEDS: PIPERACILLIN /TAZOBACTAM 3.375 G in IV D5W 100 ML IV SCH ×3 (05:04→23:00)
--- NOTE | 2021-11-29 07:20 | NUR ---
RN OPENING NOTES RECEIVED PATIENT IN BED, AWAKE, ALERT AND VERBALLY RESPONSIVE, NO SIGNS OF ACUTE DISTRESS NOTED. ON ROOM AIR, TOLERATING WELL, NO SOB NOTED. IV ACCESS RIGHT UPPER ARM MIDLINE #18G, INTACT AND PATENT WITH IV ABX ZOSYN STILL RUNNING. F/C INTACT DRAINING CLEAR YELLOW URINE. COLOSTOMY INTACT. NO C/O PAIN OR DISCOMFORT AT THIS TIME. SAFETY MEASURE IN PLACE. BED IN LOWEST LOCKED POSITION, SR UP, CALL LIGHT PLACED WITHIN EASY REACH. WILL CONTINUE TO MONITOR.
--- NOTE | 2021-11-29 07:27 | NUR ---
MS RN CLOSING NOTE PATIENT AWAKE IN BED, ALERT/ORIENTED X 3, PT ABLE TO MAKE NEEDS KNOWN. PT STABLE ON RA, NO S/S OF DISTRESS OR SOB NOTED, BREATHING EVEN AND UNLABORED. SUSANA MIDLINE INTACT, ARM STILL SWOLLEN, ELEVATED ARM. ZOSYN INFUSING @ 25 ML/HR. GRANT CATHETER IN PLACE AND DRAINING RICHIE URINE. PROVIDED FLUIDS TO PATIENT THROUGHOUT SHIFT. MEDICATIONS GIVEN ORDERED, PT NEEDS MET THROUGHOUT SHIFT. NO SIGNIFICANT CHANGES THROUGHOUT SHIFT. COLOSTOMY BAG CHANGED. SAFETY MEASURES IN PLACED: CALL LIGHT WITHIN REACH, SIDE RAILS UP X 3, BED LOCKED IN LOW POSITION, HOB ELEVATED, BED ALARM ON. ENDORSED TO DAY SHIFT NURSE FOR CONTINUITY OF CARE
[2021-11-29] MEDS: FOLIC ACID 1 MG TABLET PO SCH (08:16)
[2021-11-29] MEDS: MULTIVITAMINS,THERAGRAN 1 UDTAB TABLET PO SCH (08:16)
[2021-11-29] MEDS: GABAPENTIN 300 MG CAPSULE PO SCH ×4 (08:16→22:10)
[2021-11-29] MEDS: ASCORBIC ACID 500 MG TABLET PO SCH (08:16)
[2021-11-29] MEDS: QUETIAPINE FUMARATE 25 MG TABLET PO SCH ×2 (08:16→22:11)
[2021-11-29] MEDS: ZINC SULFATE 220 MG CAPSULE PO SCH (08:16)
[2021-11-29] MEDS: PANTOPRAZOLE 40 MG TABLET.DR PO SCH (08:16)
[2021-11-29] MEDS: DULOXETINE HCL 30 MG CAPSULE.DR PO SCH (08:16)
[2021-11-29] MEDS: POLYETHYLENE GLYCOL 3350 17 GM POWD.PACK PO SCH (08:16)
[2021-11-29] MEDS: CALCIUM CARBONATE (1250) 500 MG TABLET PO SCH (08:16)
[2021-11-29] MEDS: DIVALPROEX SODIUM 250 MG TABLET.DR PO SCH ×2 (08:17→22:11)
[2021-11-29] MEDS: METOPROLOL TARTRATE 50 MG TABLET PO SCH ×2 (08:17→22:11)
[2021-11-29] MEDS: PROSOURCE / PROSTAT (PYXIS) 30 ML UDC PO SCH ×3 (08:18→16:27)
[2021-11-29] MEDS: DAKINS QUARTER STRENGTH (0.125%) 480 ML BOTTLE TOP SCH (08:20)
[2021-11-29] MEDS: THERAHONEY GEL 1.5 OZ TUBE TP SCH (08:20)
[2021-11-29] MEDS: ENSURE ENLIVE 237 ML LIQUID (VANILLA) PO SCH ×2 (08:21→17:19)
[2021-11-29] MEDS: oxyCODONE IR immediate release 5 MG PO PRN ×2 (08:25→15:04)
[2021-11-29] MEDS: FLUTICASONE/VILANTEROL 1 EACH BLST.W.DEV IH SCH (08:33)
[2021-11-29 12:00] VITALS: BP 116/67
--- NOTE | 2021-11-29 17:00 | NUR ---
RN NOTES PATIENT REFUSED BLOOD DRAW X2 ALREADY, TRIED TO DRAW BLOOD FROM MIDLINE BUT UNSUCCESSFUL. PHARMACIST MADE AWARE. HOLD VANCO DOSE FOR NOW UNTIL VANCO THROUGH DONE. WILL ENCOURAGE PATIENT FOR COMPLIANCE.
--- NOTE | 2021-11-29 18:50 | NUR ---
RN CLOSING NOTES PATIENT IN BED, AWAKE, ALERT AND VERBALLY RESPONSIVE, NO SIGNS OF ACUTE DISTRESS NOTED. ON ROOM AIR, TOLERATING WELL, NO SOB NOTED. IV ACCESS RIGHT UPPER ARM MIDLINE #18G, INTACT AND PATENT. F/C INTACT DRAINING CLEAR YELLOW URINE. COLOSTOMY INTACT. NO C/O PAIN OR DISCOMFORT AT THIS TIME. WITH EPISODES OF REFUSING CARE IN SPITE EXPLANATION OF RISKS AND BENEFITS. SAFETY MEASURE IN PLACE. BED IN LOWEST LOCKED POSITION, SR UP, CALL LIGHT PLACED WITHIN EASY REACH. WILL ENDORSE TO NEXT SHIFT.
--- NOTE | 2021-11-29 20:19 | NUR ---
KATIE/RN AT INITIAL SHIFT ROUND PATIENT WAS IN BED AWAKE, ALERT, ORIENTED, COMFORTABLE, NO C/O PAIN, NO DISTRESS NOTED, CALL LIGHT IN REACH, FALL PRECAUTIONS PER PROTOCOL, NEEDS ATTENDED. WILL MONITOR.
[2021-11-29 20:52] VITALS: BP 125/78
[2021-11-29] MEDS: VANCOMYCIN HCL 0.75 GM in IV D5W 250 ML IV SCH (21:49)
[2021-11-29] MEDS: SENNOSIDES 8.6 MG TABLET PO SCH (22:07)
[2021-11-29] MEDS: ENOXAPARIN SODIUM 40 MG/0.4 ML DISP.SYRIN SQ SCH (22:12)
[2021-11-30 04:00] VITALS: BP 105/53
[2021-11-30] MEDS: PIPERACILLIN /TAZOBACTAM 3.375 G in IV D5W 100 ML IV SCH ×3 (04:54→21:53)
--- NOTE | 2021-11-30 06:42 | NUR ---
KATIE/RN PATIENT IS AWAKE, COMFORTABLE, NO DISTRESS NOTED, HOB ELEVATED, ALL NEEDS ATTENDED AT THIS TIME, WILL CONTINUE TO MONITOR.
[2021-11-30] MEDS: oxyCODONE IR immediate release 5 MG PO PRN (06:51)
--- NOTE | 2021-11-30 07:00 | NUR ---
KATIE/RN PATIENT REFUSED WOUND DRESSING CHANGE THIS MORNING.
--- NOTE | 2021-11-30 07:26 | NUR ---
RN NOTE PATIENT RECEIVED IN BED, RESTING, EYES CLOSED. PATIENT ON 2L O2 NC WITH NO SIGNS OF LABORED BREATHING AT THIS TIME. GRANT CATH IN PLACE. RIGHT UA MIDLINE IN PLACE. NO SIGNS OF ACUTE DISTRESS NOTED AT THIS TIME. BED LOCKED AND IN LOWEST POSITION, 2 SIDE RAILS UP, CALL LIGHT WITHIN REACH. WILL CONTINUE TO MONITOR.
[2021-11-30 08:00] VITALS: BP 109/58
[2021-11-30] MEDS: ENSURE ENLIVE 237 ML LIQUID (VANILLA) PO SCH ×2 (08:54→17:08)
[2021-11-30] MEDS: METOPROLOL TARTRATE 50 MG TABLET PO SCH ×2 (09:00→21:56)
[2021-11-30] MEDS: ZINC SULFATE 220 MG CAPSULE PO SCH (09:03)
[2021-11-30] MEDS: QUETIAPINE FUMARATE 25 MG TABLET PO SCH ×2 (09:03→21:55)
[2021-11-30] MEDS: CALCIUM CARBONATE (1250) 500 MG TABLET PO SCH (09:03)
[2021-11-30] MEDS: DULOXETINE HCL 30 MG CAPSULE.DR PO SCH (09:03)
[2021-11-30] MEDS: POLYETHYLENE GLYCOL 3350 17 GM POWD.PACK PO SCH (09:03)
[2021-11-30] MEDS: VANCOMYCIN HCL 0.75 GM in IV D5W 250 ML IV SCH ×2 (09:03→22:17)
[2021-11-30] MEDS: GABAPENTIN 300 MG CAPSULE PO SCH ×4 (09:03→21:56)
[2021-11-30] MEDS: FOLIC ACID 1 MG TABLET PO SCH (09:03)
[2021-11-30] MEDS: DIVALPROEX SODIUM 250 MG TABLET.DR PO SCH ×2 (09:03→21:55)
[2021-11-30] MEDS: MULTIVITAMINS,THERAGRAN 1 UDTAB TABLET PO SCH (09:03)
[2021-11-30] MEDS: SODIUM CHLORIDE 1000 MG TABLET PO SCH (09:04)
[2021-11-30] MEDS: PANTOPRAZOLE 40 MG TABLET.DR PO SCH (09:04)
[2021-11-30] MEDS: ASCORBIC ACID 500 MG TABLET PO SCH (09:04)
[2021-11-30] MEDS: FLUTICASONE/VILANTEROL 1 EACH BLST.W.DEV IH SCH (09:21)
[2021-11-30] MEDS: DAKINS QUARTER STRENGTH (0.125%) 480 ML BOTTLE TOP SCH (09:21)
[2021-11-30] MEDS: THERAHONEY GEL 1.5 OZ TUBE TP SCH (09:22)
[2021-11-30] MEDS: PROSOURCE / PROSTAT (PYXIS) 30 ML UDC PO SCH ×3 (09:37→16:03)
[2021-11-30] MEDS: GUAIFENESIN LA 600 MG TABLET.SA PO SCH ×2 (12:02→21:56)
[2021-11-30 16:00] VITALS: BP 101/45
--- NOTE | 2021-11-30 18:00 | NUR ---
RN NOTE PATIENT REFUSING LINEN CHANGE AND BED BATH. WILL CONTINUE TO MONITOR.
--- NOTE | 2021-11-30 18:25 | NUR ---
RN CLOSING NOTE PATIENT REMAINS IN BED, RESTING. PATIENT ON 2L O2 NC WITH NO SIGNS OF LABORED BREATHING AT THIS TIME. GRANT CATH IN PLACE. RIGHT UA MIDLINE IN PLACE. NO SIGNS OF ACUTE DISTRESS NOTED AT THIS TIME. ALL NEEDS ATTENDED DURING SHIFT. BED LOCKED AND IN LOWEST POSITION, 2 SIDE RAILS UP, CALL LIGHT WITHIN REACH. WILL ENDORSE TO [employer]IN[employer] NURSE.
--- NOTE | 2021-11-30 19:00 | NUR ---
RN NOTE RECEIVED PATIENT IN BED, AO X 4, IN NO ACUTE DISTRESS AT THIS TIME. RESPIRATIONS UNLABORED, SATURATION AT 100% ON 2L VIA NC, HR IS 109. NOTED SUSANA MIDLINE, PATENT AND FLUSHING WELL, NO S/S OF INFECTION. GRANT CATHETER CONNECTED TO URINE BAG IN PLACE, DRAINING TO A CLEAR, YELLOW OUTPUT. COLOSTOMY BAG IN PLACE, STOMA APPEARS RED, MOIST, DRAINING TO A MODERATE AMOUNT OF SEMIFORMED TO FORMED OUTPUT. SAFETY MEASURES IMPLEMENTED. PATIENT BED ALARM IS ON. HEAD OF BED ELEVATED. BED IS LOCKED, IN LOWEST POSITION AND SIDE RAILS UP. CALL LIGHT WITHIN REACH OF THE PATIENT. WILL CONTINUE TO MONITOR AND REASSESS FOR ANY CHANGES.
[2021-11-30 20:00] VITALS: BP 111/62
--- NOTE | 2021-11-30 22:00 | NUR ---
RN NOTE PT REFUSED TO BE REPOSITIONED
[2021-11-30] MEDS: ENOXAPARIN SODIUM 40 MG/0.4 ML DISP.SYRIN SQ SCH (22:01)
[2021-11-30] MEDS: SENNOSIDES 8.6 MG TABLET PO SCH (22:02)
[2021-12-01] VITALS: BP 101/45
[2021-12-01 04:00] VITALS: BP 122/71
[2021-12-01] MEDS: PIPERACILLIN /TAZOBACTAM 3.375 G in IV D5W 100 ML IV SCH (05:10)
[2021-12-01] MEDS: MORPHINE SULFATE INJ 2 MG/ML DISP.SYRIN IV PRN (05:33)
[2021-12-01 06:38] LABS: CALCIUM, SERUM 8.4 mg/dL (8.5-10.1); CREATININE 0.4 mg/dL (0.6-1.3); POTASSIUM 4.1 mmol/L (3.5-5.1)
--- NOTE | 2021-12-01 07:48 | NUR ---
RN OPENING NOTES Patient seen comfortably lying in bed, no apparent distress noted, respirations even and unlabored, no SOB, denies any pain or discomfort at this time, no grimacing. Call light left within reach, safety precautions in place, brakes locked, side rails up X 2, will monitor closely for any changes.
[2021-12-01 08:00] VITALS: BP 127/67
[2021-12-01] MEDS ORDERED: CEFEPIME 1 GM VIAL IM SCH (09:00)
[2021-12-01] MEDS: DULOXETINE HCL 30 MG CAPSULE.DR PO SCH (09:48)
[2021-12-01] MEDS: FOLIC ACID 1 MG TABLET PO SCH (09:48)
[2021-12-01] MEDS: GUAIFENESIN LA 600 MG TABLET.SA PO SCH ×2 (09:48→21:15)
[2021-12-01] MEDS: ZINC SULFATE 220 MG CAPSULE PO SCH (09:48)
[2021-12-01] MEDS: DOXYCYCLINE HYCLATE (100 MG) 100 MG TABLET PO SCH ×2 (09:48→21:15)
[2021-12-01] MEDS: GABAPENTIN 300 MG CAPSULE PO SCH ×4 (09:48→21:14)
[2021-12-01] MEDS: DIVALPROEX SODIUM 250 MG TABLET.DR PO SCH ×2 (09:48→21:15)
[2021-12-01] MEDS: CALCIUM CARBONATE (1250) 500 MG TABLET PO SCH (09:48)
[2021-12-01] MEDS: PANTOPRAZOLE 40 MG TABLET.DR PO SCH (09:48)
[2021-12-01] MEDS: PROSOURCE / PROSTAT (PYXIS) 30 ML UDC PO SCH ×3 (09:49→16:01)
[2021-12-01] MEDS: MULTIVITAMINS,THERAGRAN 1 UDTAB TABLET PO SCH (09:49)
[2021-12-01] MEDS: ASCORBIC ACID 500 MG TABLET PO SCH (09:49)
[2021-12-01] MEDS: METOPROLOL TARTRATE 50 MG TABLET PO SCH ×2 (09:49→21:00)
[2021-12-01] MEDS: QUETIAPINE FUMARATE 25 MG TABLET PO SCH ×2 (09:49→21:15)
[2021-12-01] MEDS: POLYETHYLENE GLYCOL 3350 17 GM POWD.PACK PO SCH (09:49)
[2021-12-01] MEDS: ENSURE ENLIVE 237 ML LIQUID (VANILLA) PO SCH ×2 (09:49→16:01)
[2021-12-01] MEDS: SODIUM CHLORIDE 1000 MG TABLET PO SCH (09:53)
[2021-12-01] MEDS: DAKINS QUARTER STRENGTH (0.125%) 480 ML BOTTLE TOP SCH (10:03)
[2021-12-01] MEDS: FLUTICASONE/VILANTEROL 1 EACH BLST.W.DEV IH SCH (10:03)
[2021-12-01] MEDS: THERAHONEY GEL 1.5 OZ TUBE TP SCH (10:03)
[2021-12-01] MEDS: CEFEPIME 2 GM in IV D5W 100 ML IV SCH ×2 (12:10→21:15)
[2021-12-01 16:00] VITALS: BP 101/67
[2021-12-01] MEDS: ACETAMINOPHEN 325 MG TABLET PO PRN (16:54)
--- NOTE | 2021-12-01 18:36 | NUR ---
RN CLOSING NOTES Patient lying in bed, no shortness of breath, respirations even and unlabored, no apparent distress noted, no dizziness, no palpitations, no chest pain, remained afebrile. All due medications given per MD order, tolerating well. Patient has an order for IV ATB (Cefepime) midline on right upper arm, covered with clean, intact and dry dressings and no swelling, no redness, no c/o pain or discomfort at site. Gonsalez catheter draining clear yellowish urine free from any sediments, no hematuria, and no unusual odor noted in urine, denies any bladder pain or discomfort, bladder non distended during shift. Aspiration precautions observed at all times, kept head of bed elevated, all needs anticipated, kept clean and dry, patient repositioned frequently, safety precautions in place, frequent visual checks rendered, side rails up X 2, brakes locked, call light left within reach, will endorse to next shift for continuity of care.
--- NOTE | 2021-12-01 19:30 | NUR ---
RN NOTE PT RECEIVED IN BED,. PT IS ON 2L OF O2 VIA NC SHOWING NO S/S OF RESP DISTRESS. BREATHING EVEN AND UNLABORED. PT IS A/OX2-3, ABLE TO VERBALIZE NEEDS. IV ACCESS NOTED ON RIGHT UPPER ARM ML. LINE FLUSHED, PATENT, AND INTACT WITH NO SIGNS OF INFILTRATION. ALL SAFETY MEASURES IMPLEMENTED. HOB ELEVATED. CALL LIGHT WITHIN REACH. BED LOCKED AND IN LOWEST POSITION. SIDE RAILS UP. WILL CONTINUE TO MONITOR AND ASSESS FOR ANY CHANGES DURING SHIFT.
[2021-12-01 20:00] VITALS: BP 92/54
[2021-12-01] MEDS: ENOXAPARIN SODIUM 40 MG/0.4 ML DISP.SYRIN SQ SCH (21:14)
[2021-12-01] MEDS: SENNOSIDES 8.6 MG TABLET PO SCH (21:15)
[2021-12-02 04:00] VITALS: BP 131/97
--- NOTE | 2021-12-02 04:35 | NUR ---
RN NOTE PT PLACED ON SIMPLE FACE MASK AT 10L DUE TO DESATURATION ON NC 2L. CURRENT OXYGEN SATURATION BETWEEN 94-95%. UNABLE TO TAKE PICTURES OF WOUNDS DUE TO DESATURATION, ELEVATED HR AND PT BEING IN TOO MUCH PAIN.
[2021-12-02] MEDS: CEFEPIME 2 GM in IV D5W 100 ML IV SCH ×3 (04:51→20:12)
--- NOTE | 2021-12-02 06:00 | NUR ---
RN NOTE PT BEING UNCOOPERATIVE. PULLED OUT MIDLINE, UNABLE TO START IV SITE DUE TO PT BEING HARD STICK. WILL F/U WITH NURSING VERTICAL ROLL OPERATOR TO SEE WHEN MIDLINE NURSE IS AVAILABLE.
--- NOTE | 2021-12-02 06:35 | NUR ---
RN NOTE PT NOW ON 10L OF O2 VIA SIMPLE FACE MASK SHOWING NO S/S OF RESP DISTRESS. BREATHING EVEN AND UNLABORED. CURRENT OXYGEN SATURATION BETWEEN 94-95%. PT IS A/OX2-3, ABLE TO VERBALIZE NEEDS. PT PULLED OUT MIDLINE, WAITING TO HEAR BACK FROM NURSING COMB TENDER ON WHEN MIDLINE NURSE WILL BE AVAILABLE. ALL SAFETY MEASURES IMPLEMENTED. ALL DUE MEDS GIVEN ORDERED. HOB ELEVATED. CALL LIGHT WITHIN REACH. BED LOCKED AND IN LOWEST POSITION. SIDE RAILS UP. WILL ENDORSE TO MORNING SHIFT RN FOR BOZENA.
[2021-12-02 08:00] VITALS: BP 161/87
[2021-12-02] MEDS: ZINC SULFATE 220 MG CAPSULE PO SCH (09:30)
[2021-12-02] MEDS: POLYETHYLENE GLYCOL 3350 17 GM POWD.PACK PO SCH (09:30)
[2021-12-02] MEDS: MULTIVITAMINS,THERAGRAN 1 UDTAB TABLET PO SCH (09:30)
[2021-12-02] MEDS: GUAIFENESIN LA 600 MG TABLET.SA PO SCH ×2 (09:30→21:56)
[2021-12-02] MEDS: CALCIUM CARBONATE (1250) 500 MG TABLET PO SCH (09:30)
[2021-12-02] MEDS: DULOXETINE HCL 30 MG CAPSULE.DR PO SCH (09:30)
[2021-12-02] MEDS: DOXYCYCLINE HYCLATE (100 MG) 100 MG TABLET PO SCH ×2 (09:30→21:56)
[2021-12-02] MEDS: GABAPENTIN 300 MG CAPSULE PO SCH ×4 (09:30→21:56)
[2021-12-02] MEDS: ASCORBIC ACID 500 MG TABLET PO SCH (09:31)
[2021-12-02] MEDS: FOLIC ACID 1 MG TABLET PO SCH (09:31)
[2021-12-02] MEDS: QUETIAPINE FUMARATE 25 MG TABLET PO SCH ×2 (09:31→21:59)
[2021-12-02] MEDS: SODIUM CHLORIDE 1000 MG TABLET PO SCH (09:31)
[2021-12-02] MEDS: METOPROLOL TARTRATE 50 MG TABLET PO SCH ×2 (09:32→21:00)
[2021-12-02] MEDS: DIVALPROEX SODIUM 250 MG TABLET.DR PO SCH ×2 (09:39→21:56)
[2021-12-02] MEDS: ENSURE ENLIVE 237 ML LIQUID (VANILLA) PO SCH ×2 (09:46→17:44)
[2021-12-02] MEDS: FLUTICASONE/VILANTEROL 1 EACH BLST.W.DEV IH SCH (09:46)
[2021-12-02] MEDS: PANTOPRAZOLE 40 MG TABLET.DR PO SCH (09:46)
[2021-12-02] MEDS: PROSOURCE / PROSTAT (PYXIS) 30 ML UDC PO SCH ×3 (09:57→17:51)
[2021-12-02] MEDS: DAKINS QUARTER STRENGTH (0.125%) 480 ML BOTTLE TOP SCH (09:57)
[2021-12-02] MEDS: THERAHONEY GEL 1.5 OZ TUBE TP SCH (09:57)
[2021-12-02 16:00] VITALS: BP 133/76
--- NOTE | 2021-12-02 18:54 | NUR ---
CHANGE OF SHIFT REPORT PT RESTING COMFORTABLY IN BED. NO S/S OR C/O PAIN OR DISTRESS NOTED. SIDE RAILS UP X2, CALL LIGHT LEFT WITHIN REACH. PT KEPT CLEAN, DRY, AND COMFORTABLE. NO SIGNIFICANT CHANGES SINCE PREVIOUS SHIFT.
--- NOTE | 2021-12-02 19:11 | NUR ---
RN OPENING NOTES PT RESTING COMFORTABLY IN BED. NO S/S OR C/O PAIN OR DISTRESS NOTED. SIDE RAILS UP X2, CALL LIGHT LEFT WITHIN REACH. PT KEPT CLEAN, DRY, AND COMFORTABLE. PT NOTED WITH SIMPLE FACE MASK SATURATING AT 92% ON 10 L. WILL CONTINUE TO MONITOR.
--- NOTE | 2021-12-02 21:00 | NUR ---
MS RN NOTES REPORTED METOPROLOL ON PIXIS BUT FORGOT TO PUT IT IN THE RETURN BIN PUT IT IN THE PT CASET LABELED IN A PLASTIC BAG WITNESSED RETURN BY KULWANT HYDE. WILL CONTINUE TO MONITOR.
[2021-12-02] MEDS: SENNOSIDES 8.6 MG TABLET PO SCH (21:57)
[2021-12-02] MEDS: ENOXAPARIN SODIUM 40 MG/0.4 ML DISP.SYRIN SQ SCH (22:00)
[2021-12-02 22:57] VITALS: BP 109/69
[2021-12-02] MEDS: oxyCODONE IR immediate release 5 MG PO PRN (23:06)
--- NOTE | 2021-12-02 23:17 | NUR ---
MS RN NOTES PRN PAIN MEDICATION GIVEN FOR GENERALIZED PAIN. TOLERATED WELL. WILL CONTINUE TO MONITOR.
[2021-12-03 00:10] VITALS: BP 109/69
--- NOTE | 2021-12-03 02:54 | NUR ---
MS RN NOTES PT REFUSINF FULL LINEN CHANGE RISK AND BENEFITS EXPLAINED X3 . PT REFUSING WOUND CARE ON HIS BILATERAL LOWER EXTREMITIES RISK AND BENEFITS EXPLAINED X3 PT STATED " I SAID NO DAMN IT !"
[2021-12-03] MEDS: CEFEPIME 2 GM in IV D5W 100 ML IV SCH ×3 (04:01→20:42)
--- NOTE | 2021-12-03 06:42 | NUR ---
RN CLOSING NOTES PT RESTING COMFORTABLY IN BED. NO S/S OR C/O PAIN OR DISTRESS NOTED. SIDE RAILS UP X2, CALL LIGHT LEFT WITHIN REACH. PT KEPT CLEAN, DRY, AND COMFORTABLE. PT WITH NASAL CANNULA 4L OF O2 AT 95% O2 SAT. PT REFUSED CHANGE OF WOUND DRESSING AND A FULL LINEN CHANGE PT UPSET BECAUSE HE HAS TO WAIT FOR BREAKFAST PT SCREAMING " I WANT IT NOW! BRING IT NOW!" WILL ENDORSE CARE TO DAY SHIFT NURSE.
[2021-12-03 08:00] VITALS: BP 95/59
[2021-12-03] MEDS: ENSURE ENLIVE 237 ML LIQUID (VANILLA) PO SCH ×2 (08:00→17:53)
[2021-12-03] MEDS: METOPROLOL TARTRATE 50 MG TABLET PO SCH ×2 (09:00→20:42)
[2021-12-03] MEDS: PROSOURCE / PROSTAT (PYXIS) 30 ML UDC PO SCH ×3 (09:25→17:54)
[2021-12-03] MEDS: POLYETHYLENE GLYCOL 3350 17 GM POWD.PACK PO SCH (09:25)
[2021-12-03] MEDS: ASCORBIC ACID 500 MG TABLET PO SCH (09:27)
[2021-12-03] MEDS: MULTIVITAMINS,THERAGRAN 1 UDTAB TABLET PO SCH (09:27)
[2021-12-03] MEDS: ZINC SULFATE 220 MG CAPSULE PO SCH (09:27)
[2021-12-03] MEDS: DIVALPROEX SODIUM 250 MG TABLET.DR PO SCH ×2 (09:27→20:42)
[2021-12-03] MEDS: SODIUM CHLORIDE 1000 MG TABLET PO SCH (09:28)
[2021-12-03] MEDS: GUAIFENESIN LA 600 MG TABLET.SA PO SCH ×2 (09:28→20:42)
[2021-12-03] MEDS: FOLIC ACID 1 MG TABLET PO SCH (09:28)
[2021-12-03] MEDS: DOXYCYCLINE HYCLATE (100 MG) 100 MG TABLET PO SCH ×2 (09:28→20:42)
[2021-12-03] MEDS: QUETIAPINE FUMARATE 25 MG TABLET PO SCH ×2 (09:28→20:46)
[2021-12-03] MEDS: CALCIUM CARBONATE (1250) 500 MG TABLET PO SCH (09:28)
[2021-12-03] MEDS: GABAPENTIN 300 MG CAPSULE PO SCH ×4 (09:28→20:42)
[2021-12-03] MEDS: DULOXETINE HCL 30 MG CAPSULE.DR PO SCH (09:30)
[2021-12-03] MEDS: PANTOPRAZOLE 40 MG TABLET.DR PO SCH (09:30)
[2021-12-03] MEDS: FLUTICASONE/VILANTEROL 1 EACH BLST.W.DEV IH SCH (14:19)
[2021-12-03] MEDS: DAKINS QUARTER STRENGTH (0.125%) 480 ML BOTTLE TOP SCH (14:35)
[2021-12-03] MEDS: THERAHONEY GEL 1.5 OZ TUBE TP SCH (14:35)
[2021-12-03 16:00] VITALS: BP 114/62
--- NOTE | 2021-12-03 18:00 | NUR ---
Insolvency Practitioner in to see the patient and explained to the patient that his kidney function is declining and he may possibly lose function in the kidneys. Doctor would like to have blood drawn to check on the kidney function. Patient refused and became sarcastic and agitated and then demanded that the doctor leave the room. Will continue to offer the lab test and medications and treatments.
--- NOTE | 2021-12-03 19:15 | NUR ---
RN NOTE PT RESTING IN BED, EASILY AROUSABLE, A/OX3, ABLE TO MAKE NEEDS KNOWN. HE DENIES PAIN AT THIS TIME. NO SOB. ON O2 @4LPM VIA NC. IV SITE SUSANA MIDLINE INTACT/PATENT/FLUSHES WELL. F/C DRAINING CLEAR YELLOW URINE. COLOSTOMY INTACT. PT IN NO ACUTE DISTRESS. SAFETY MEASURES IN PLACE. WILL CONT TO MONITOR.
[2021-12-03 20:00] VITALS: BP 90/51
[2021-12-03] MEDS: ENOXAPARIN SODIUM 40 MG/0.4 ML DISP.SYRIN SQ SCH (20:46)
[2021-12-03] MEDS: SENNOSIDES 8.6 MG TABLET PO SCH (22:30)
[2021-12-04 04:00] VITALS: BP 105/59
[2021-12-04] MEDS: CEFEPIME 2 GM in IV D5W 100 ML IV SCH ×4 (04:49→21:27)
--- NOTE | 2021-12-04 06:00 | NUR ---
RN NOTE Pt refused labs
--- NOTE | 2021-12-04 06:50 | NUR ---
RN NOTE Pt resting in bed, easily arousable to stimuli. He denies any pain or discomfort at this time. Denies SOB. Cont on O2 @4L via NC. IV site intact/patent. FC draining clear yellow uring. Colostomy bag emptied. Pt slept well during the night. No change of condition noted. Safety measures maintained.
--- NOTE | 2021-12-04 07:20 | NUR ---
RN OPENING NOTES RECEIVED PATIENT IN BED, AWAKE, ALERT AND VERBALLY RESPONSIVE, NO SIGNS OF ACUTE DISTRESS NOTED. ON O2 @4LPM VIA N/C, NO SOB NOTED. SATURATION @98%. IV ACCESS RIGHT UPPER ARM MIDLINE #18G, INTACT AND PATENT. F/C INTACT DRAINING CLEAR YELLOW URINE. COLOSTOMY INTACT. NO C/O PAIN OR DISCOMFORT AT THIS TIME. SAFETY MEASURE IN PLACE. BED IN LOWEST LOCKED POSITION, SR UP, CALL LIGHT PLACED WITHIN EASY REACH. WILL CONTINUE TO MONITOR.
[2021-12-04 08:00] VITALS: BP 112/73
[2021-12-04] MEDS: PANTOPRAZOLE 40 MG TABLET.DR PO SCH (08:31)
[2021-12-04] MEDS: FOLIC ACID 1 MG TABLET PO SCH (08:32)
[2021-12-04] MEDS: GUAIFENESIN LA 600 MG TABLET.SA PO SCH ×3 (08:32→21:27)
[2021-12-04] MEDS: MULTIVITAMINS,THERAGRAN 1 UDTAB TABLET PO SCH (08:32)
[2021-12-04] MEDS: QUETIAPINE FUMARATE 25 MG TABLET PO SCH ×3 (08:32→21:27)
[2021-12-04] MEDS: ASCORBIC ACID 500 MG TABLET PO SCH (08:32)
[2021-12-04] MEDS: CALCIUM CARBONATE (1250) 500 MG TABLET PO SCH (08:32)
[2021-12-04] MEDS: ZINC SULFATE 220 MG CAPSULE PO SCH (08:32)
[2021-12-04] MEDS: DOXYCYCLINE HYCLATE (100 MG) 100 MG TABLET PO SCH ×3 (08:32→21:28)
[2021-12-04] MEDS: DIVALPROEX SODIUM 250 MG TABLET.DR PO SCH ×2 (08:33→21:27)
[2021-12-04] MEDS: ENSURE ENLIVE 237 ML LIQUID (VANILLA) PO SCH ×2 (08:33→17:47)
[2021-12-04] MEDS: METOPROLOL TARTRATE 50 MG TABLET PO SCH ×2 (08:33→21:00)
[2021-12-04] MEDS: POLYETHYLENE GLYCOL 3350 17 GM POWD.PACK PO SCH (08:33)
[2021-12-04] MEDS: GABAPENTIN 300 MG CAPSULE PO SCH ×5 (08:33→21:28)
[2021-12-04] MEDS: FLUTICASONE/VILANTEROL 1 EACH BLST.W.DEV IH SCH (08:34)
[2021-12-04] MEDS: PROSOURCE / PROSTAT (PYXIS) 30 ML UDC PO SCH ×3 (08:34→16:47)
[2021-12-04] MEDS: DULOXETINE HCL 30 MG CAPSULE.DR PO SCH (08:36)
[2021-12-04] MEDS: THERAHONEY GEL 1.5 OZ TUBE TP SCH (08:36)
[2021-12-04] MEDS: DAKINS QUARTER STRENGTH (0.125%) 480 ML BOTTLE TOP SCH (08:37)
[2021-12-04] MEDS: SODIUM CHLORIDE 1000 MG TABLET PO SCH (08:45)
[2021-12-04 16:00] VITALS: BP 107/50
[2021-12-04] MEDS: oxyCODONE IR immediate release 5 MG PO PRN (18:10)
--- NOTE | 2021-12-04 18:39 | NUR ---
RN CLOSING NOTES PATIENT IN BED, AWAKE, ALERT AND VERBALLY RESPONSIVE, NO SIGNS OF ACUTE DISTRESS NOTED. ON O2 @4LPM VIA N/C, NO SOB NOTED. SATURATION @98%. IV ACCESS RIGHT UPPER ARM MIDLINE #18G, INTACT AND PATENT. F/C INTACT DRAINING CLEAR YELLOW URINE. COLOSTOMY INTACT, WITH BROWNISH WATERY STOOL. COLOSTOMY BAG CHANGED. WOUND TREATMENT DONE. ALL DUE MEDS GIVEN TAKEN WELL. REFUSED BLOOD DRAW IN SPITE EXPLANATION OF RISKS AND BENEFITS. SAFETY MEASURE MAINTAINED. BED IN LOWEST AND LOCKED POSITION, SR UP, CALL LIGHT PLACED WITHIN EASY REACH. WILL ENDORSE TO NEXT SHIFT FOR CONTINUITY OF CARE.
[2021-12-04 20:00] VITALS: BP 95/57
[2021-12-04] MEDS: ENOXAPARIN SODIUM 40 MG/0.4 ML DISP.SYRIN SQ SCH ×2 (21:00→21:29)
[2021-12-04] MEDS: SENNOSIDES 8.6 MG TABLET PO SCH ×2 (21:28→22:00)
--- NOTE | 2021-12-04 21:50 | NUR ---
RN NOTE CALLED DR. ELENA FOR PARAMETERS FOR LOPRESSOR 50MG. PATIENT BP IS 95/57 HR 105. THIS IS A MED SURG PATIENT. TELEPHONE ORDER TO TAKE MANUAL BPO AND HOLD IS SBP IS LESS THAN 100 OR ID dbp LESS THAN 60. ORDERS READ BACK NOTED AND CARRIED OUT.
[2021-12-04 22:00] VITALS: BP 90/50
--- NOTE | 2021-12-04 22:28 | NUR ---
RN NOTE PATIENT REFUSED MEDICATIONS TONIGHT: MAXPIME , MUCINEX, NEURONTIN, SEROQUEL, VIBRAMYCIN, AND LOVENOX. PATIENT WAS UPSET AND WANTED TO LEAVE HIM ALONE. EDUCATED PATIENT ON MEDICATIONS. ENCOURAGED AT LEAST DEPAKOTE TO BE TAKEN. HE DID TAKE DEPAKOTE. ONE SENOKOT PILL WAS WASTED AND THROWN AWAY D/T MEDICATION WAS OPENED PATIENT WAS EXPRESSING FOR ME TO LEAVE HIM ALONE AND HE DOES NOT WANT MEDICATION. MEDICATIONS RETURNED TO [employer] WITH WITNESS FROM BLADIMIR HYDE.
[2021-12-05 04:00] VITALS: BP 118/67
[2021-12-05] MEDS: CEFEPIME 2 GM in IV D5W 100 ML IV SCH ×4 (05:00→21:00)
--- NOTE | 2021-12-05 07:19 | NUR ---
RN CLOSING NOTE PATIENT A/OX3. REMAINS ON 4L NASAL CANNULA. PATIENT REFUSED, CHANGING REPOSITIONING, WOUND TREATMENT AND MAJORITY MEDICATIONS. NO COMPLAINTS OF PAIN THROUGHOUT SHIFT. IV ACCESS HAVE BECOME INFILTRATED AND/ OR PULLED OUT. COLOSTOMY BAG INTACT, NO OUTPUT. GRANT CATHETER DRAINING TO GRAVITY, OUTPUT 900 YELLOW. PENDING PLACEMENT. SAFETY MEASURES IN PLACE.
--- NOTE | 2021-12-05 07:24 | NUR ---
RN OPENING NOTE RECEIVED PATIENT AWAKE IN BED. A/O X4. NO S/SX OF ACUTE DISTRESS NOTED. NO SOB. PT IS ON 4L O2 VIA NASAL CANNULA WITH SATURATION 98%. BREATHING IS EVEN AND UNLABORED. WITH NO IV ACCESS AT THIS TIME. PT DECLINED REINSERTION. SAFETY MEASURES IN PLACE WITH BED LOCKED AT LOW POSITION AND SIDE RAILS UP X 2. CALL LIGHT IS WITHIN REACH. WILL CONTINUE TO MONITOR PATIENT THROUGHOUT SHIFT.
[2021-12-05] MEDS: ENSURE ENLIVE 237 ML LIQUID (VANILLA) PO SCH ×2 (07:42→16:03)
[2021-12-05 08:00] VITALS: BP 112/73
[2021-12-05] MEDS: PANTOPRAZOLE 40 MG TABLET.DR PO SCH (08:22)
[2021-12-05] MEDS: DULOXETINE HCL 30 MG CAPSULE.DR PO SCH (08:22)
[2021-12-05] MEDS: DIVALPROEX SODIUM 250 MG TABLET.DR PO SCH ×2 (08:22→21:30)
[2021-12-05] MEDS: ASCORBIC ACID 500 MG TABLET PO SCH (08:22)
[2021-12-05] MEDS: POLYETHYLENE GLYCOL 3350 17 GM POWD.PACK PO SCH (08:22)
[2021-12-05] MEDS: DOXYCYCLINE HYCLATE (100 MG) 100 MG TABLET PO SCH ×2 (08:23→21:29)
[2021-12-05] MEDS: QUETIAPINE FUMARATE 25 MG TABLET PO SCH ×2 (08:23→21:28)
[2021-12-05] MEDS: ZINC SULFATE 220 MG CAPSULE PO SCH (08:23)
[2021-12-05] MEDS: GABAPENTIN 300 MG CAPSULE PO SCH ×4 (08:23→21:29)
[2021-12-05] MEDS: MULTIVITAMINS,THERAGRAN 1 UDTAB TABLET PO SCH (08:23)
[2021-12-05] MEDS: GUAIFENESIN LA 600 MG TABLET.SA PO SCH ×2 (08:23→21:29)
[2021-12-05] MEDS: FOLIC ACID 1 MG TABLET PO SCH (08:23)
[2021-12-05] MEDS: SODIUM CHLORIDE 1000 MG TABLET PO SCH (08:23)
[2021-12-05] MEDS: CALCIUM CARBONATE (1250) 500 MG TABLET PO SCH (08:23)
[2021-12-05] MEDS: METOPROLOL TARTRATE 50 MG TABLET PO SCH ×2 (08:24→21:30)
[2021-12-05] MEDS: oxyCODONE IR immediate release 5 MG PO PRN ×2 (08:30→13:37)
[2021-12-05] MEDS: THERAHONEY GEL 1.5 OZ TUBE TP SCH (08:35)
[2021-12-05] MEDS: FLUTICASONE/VILANTEROL 1 EACH BLST.W.DEV IH SCH (08:35)
[2021-12-05] MEDS: DAKINS QUARTER STRENGTH (0.125%) 480 ML BOTTLE TOP SCH (08:36)
[2021-12-05] MEDS: PROSOURCE / PROSTAT (PYXIS) 30 ML UDC PO SCH ×3 (08:37→16:03)
--- NOTE | 2021-12-05 11:59 | NUR ---
RN NOTE PT WITHOUT IV ACCESS;REFUSING IV REINSERTION. DR RANI PASCUAL MADE AWARE.
[2021-12-05 16:00] VITALS: BP 104/67
--- NOTE | 2021-12-05 18:52 | NUR ---
RN OPENING NOTE PATIENT AWAKE IN BED. A/O X4. NO S/SX OF ACUTE DISTRESS NOTED. NO SOB. PT REMAINS ON 4L O2 VIA NASAL CANNULA WITH SATURATION 98%. BREATHING IS EVEN AND UNLABORED. WITH NO IV ACCESS AT THIS TIME. PT DECLINED REINSERTION; MD AWARE. SAFETY MEASURES IN PLACE WITH BED LOCKED AT LOW POSITION AND SIDE RAILS UP X 2. ALL NEEDS MET THROUGHOUT SHIFT. CALL LIGHT IS WITHIN REACH. WILL ENDORSE CONTINUITY OF CARE TO ONCOMING SHIFT.
[2021-12-05 20:00] VITALS: BP 118/66
--- NOTE | 2021-12-05 20:00 | NUR ---
DIRECTOR PERSONAL CLOSING NOTES PTS IN BED AWAKE ON MS STATUS NO SOB NO DISTRESS NOTED ON 4 LITERS NC SATING 97 % V/S STABLE AFEBRILE , DUE MEDS GIVEN ORDERED , ML ON SUSANA INTACT AND PATENT , ALL NEEDS ATTENDED TOO CALL LIGHT WITHIN REACH .F/C INTACT AND PATENT TURNED AND REPOSITIONED , NOTED PTS WITH MULTIPLE WOUNDS ,WOUND CARE RENDERED PTS WITH NO EPISODE OF REFUSING MEDS WILL CONTINUE TO MONITOR PTS ENDORSE TO DAY SHIFT NURSE FOR CONTINUITY OF CARE Addendum: 12/06/21 at 8724 by DENY LARSEN RN THIS IS CLOSING NOTES
[2021-12-05] MEDS: SENNOSIDES 8.6 MG TABLET PO SCH (21:28)
[2021-12-05] MEDS: ENOXAPARIN SODIUM 40 MG/0.4 ML DISP.SYRIN SQ SCH (21:36)
[2021-12-05] MEDS: MORPHINE SULFATE INJ 2 MG/ML DISP.SYRIN IV PRN (23:08)
[2021-12-06 04:00] VITALS: BP 91/52
[2021-12-06] MEDS: CEFEPIME 2 GM in IV D5W 100 ML IV SCH ×3 (05:34→20:43)
--- NOTE | 2021-12-06 07:30 | NUR ---
RN OPENING NOTES RECEIVED PATIENT AWAKE IN BED. A/O X4. ON 4L OF NC O2 WITH EVEN CHEST EXPANSION DURING RESPIRATIONS WITH NO S/SX OF RESP DISTRESS NOTED. R ARM GENERALIZED EDEMA NOTED. PATIENT HAS SUSANA MIDLINE IN PLACE, FLUSHING BUT PATIENT COMPLAINS OF PAIN, WILL KEEP WITHOUT USE AND CONTINUE TO ASSESS SWELLING. SAFETY MEASURES IN PLACE: BED IN LOWEST POSITION, SIDE RAILS UP X2, WHEELS LOCKED, CALL LIGHT WITHIN REACH. WILL CONTINUE PLAN OF CARE
[2021-12-06] MEDS: ENSURE ENLIVE 237 ML LIQUID (VANILLA) PO SCH ×2 (08:00→17:32)
[2021-12-06] MEDS: POLYETHYLENE GLYCOL 3350 17 GM POWD.PACK PO SCH (08:41)
[2021-12-06] MEDS: DIVALPROEX SODIUM 250 MG TABLET.DR PO SCH ×2 (08:42→20:45)
[2021-12-06] MEDS: ASCORBIC ACID 500 MG TABLET PO SCH (08:42)
[2021-12-06] MEDS: GUAIFENESIN LA 600 MG TABLET.SA PO SCH ×2 (08:42→20:44)
[2021-12-06] MEDS: DULOXETINE HCL 30 MG CAPSULE.DR PO SCH (08:42)
[2021-12-06] MEDS: QUETIAPINE FUMARATE 25 MG TABLET PO SCH ×2 (08:42→20:45)
[2021-12-06] MEDS: ZINC SULFATE 220 MG CAPSULE PO SCH (08:43)
[2021-12-06] MEDS: SODIUM CHLORIDE 1000 MG TABLET PO SCH (08:43)
[2021-12-06] MEDS: CALCIUM CARBONATE (1250) 500 MG TABLET PO SCH (08:43)
[2021-12-06] MEDS: DOXYCYCLINE HYCLATE (100 MG) 100 MG TABLET PO SCH ×2 (08:43→20:44)
[2021-12-06] MEDS: FOLIC ACID 1 MG TABLET PO SCH (08:43)
[2021-12-06] MEDS: METOPROLOL TARTRATE 50 MG TABLET PO SCH ×2 (08:43→20:45)
[2021-12-06] MEDS: MULTIVITAMINS,THERAGRAN 1 UDTAB TABLET PO SCH (08:43)
[2021-12-06] MEDS: PANTOPRAZOLE 40 MG TABLET.DR PO SCH (08:46)
[2021-12-06] MEDS: GABAPENTIN 300 MG CAPSULE PO SCH ×4 (08:47→20:44)
[2021-12-06] MEDS: FLUTICASONE/VILANTEROL 1 EACH BLST.W.DEV IH SCH (09:22)
[2021-12-06] MEDS: DAKINS QUARTER STRENGTH (0.125%) 480 ML BOTTLE TOP SCH (09:26)
[2021-12-06] MEDS: THERAHONEY GEL 1.5 OZ TUBE TP SCH (09:26)
[2021-12-06] MEDS: PROSOURCE / PROSTAT (PYXIS) 30 ML UDC PO SCH ×3 (09:28→16:14)
[2021-12-06] MEDS: MORPHINE SULFATE INJ 2 MG/ML DISP.SYRIN IV PRN (10:00)
--- NOTE | 2021-12-06 15:00 | NUR ---
RN opening notes Pt is laying in bed comfortably watching TV. Pt is alert and orientedX2-3. on 4 L NC. No SOB. No S/S of distress noted. CRUZ midline is clean, intact and flushes well. bower cath is in placed and draining yellow urine. colostomy is intact and in placed. safety precautions is maintained. Bed at low position, brakes locked, side railsupX3, hob elevated and call light is within reach. Will continue to monitor.
--- NOTE | 2021-12-06 19:15 | NUR ---
RN closing notes Pt is resting in bed comfortably. ON 4 L NC. No SOB. No S/s of distress noted. VS is stable. routine meds were given as ordered. kept Pt clean, dry and comfortable. All needs met and attended. Safety precautions is maintained. Will endorse to am nurse for BOZENA. Addendum: 12/06/21 at 2235 by MINOO POWER RN will endorse to PM nurse
[2021-12-06 20:00] VITALS: BP 119/64
[2021-12-06] MEDS: ENOXAPARIN SODIUM 40 MG/0.4 ML DISP.SYRIN SQ SCH (21:05)
[2021-12-06] MEDS: SENNOSIDES 8.6 MG TABLET PO SCH (22:10)
[2021-12-07] MEDS: MORPHINE SULFATE INJ 2 MG/ML DISP.SYRIN IV PRN (00:04)
[2021-12-07 04:00] VITALS: BP 117/61
[2021-12-07] MEDS: CEFEPIME 2 GM in IV D5W 100 ML IV SCH ×3 (04:46→21:59)
--- NOTE | 2021-12-07 06:40 | NUR ---
RN NOTES PTS IN BED AWAKE ON MS STATUS NO SOB NO DISTRESS NOTED ON 4 LITERS NC SATING 97 % V/S STABLE AFEBRILE , DUE MEDS GIVEN ORDERED , ML ON SUSANA INTACT AND PATENT , ALL NEEDS ATTENDED TOO CALL LIGHT WITHIN REACH .F/C INTACT AND PATENT TURNED AND REPOSITIONED , NOTED PTS WITH MULTIPLE WOUNDS ,WOUND CARE RENDERED PTS WITH NO EPISODE OF REFUSING MEDS WILL CONTINUE TO MONITOR PTS ENDORSE TO DAY SHIFT NURSE FOR CONTINUITY OF CARE
[2021-12-07] MEDS: PANTOPRAZOLE 40 MG TABLET.DR PO SCH (07:33)
--- NOTE | 2021-12-07 07:39 | NUR ---
MS HYDE OPENING NOTE PATIENT LAYING IN BED, A/O X 4, TOLERATING WELL ON 4 LPM O2 VIA CANNULA WITH NO S/S OF RESPIRATORY DISTRESS. BREATHING EVEN AND UNLABORED WITH NO S/S OF PAIN OR DISCOMFORT AT THIS TIME. CRUZ MIDLINE #18 INTACT, CLEAN, AND FLUSHING WELL. SAFETY MEASURES IN PLACE: BED IN LOWEST LOCKED POSITION, SIDE RAILS UP X 2, CALL LIGHT WITHIN REACH. WILL CONTINUE TO MONITOR. Addendum: 12/07/21 at 0753 by BESSY ZAMBRANO RN GRANT CATHETER IN PLACE DRAINING CLEAR YELLOW URINE TO GRAVITY
[2021-12-07] MEDS: ENSURE ENLIVE 237 ML LIQUID (VANILLA) PO SCH ×2 (07:52→17:20)
[2021-12-07] MEDS: CALCIUM CARBONATE (1250) 500 MG TABLET PO SCH (08:36)
[2021-12-07] MEDS: QUETIAPINE FUMARATE 25 MG TABLET PO SCH ×2 (08:36→21:57)
[2021-12-07] MEDS: POLYETHYLENE GLYCOL 3350 17 GM POWD.PACK PO SCH (08:36)
[2021-12-07] MEDS: FOLIC ACID 1 MG TABLET PO SCH (08:36)
[2021-12-07] MEDS: METOPROLOL TARTRATE 50 MG TABLET PO SCH ×2 (08:37→21:00)
[2021-12-07] MEDS: MULTIVITAMINS,THERAGRAN 1 UDTAB TABLET PO SCH (08:37)
[2021-12-07] MEDS: ASCORBIC ACID 500 MG TABLET PO SCH (08:38)
[2021-12-07] MEDS: SODIUM CHLORIDE 1000 MG TABLET PO SCH (08:38)
[2021-12-07] MEDS: GUAIFENESIN LA 600 MG TABLET.SA PO SCH ×2 (08:38→21:57)
[2021-12-07] MEDS: DOXYCYCLINE HYCLATE (100 MG) 100 MG TABLET PO SCH ×2 (08:38→21:57)
[2021-12-07] MEDS: GABAPENTIN 300 MG CAPSULE PO SCH ×4 (08:38→21:57)
[2021-12-07] MEDS: ZINC SULFATE 220 MG CAPSULE PO SCH (08:38)
[2021-12-07] MEDS: DULOXETINE HCL 30 MG CAPSULE.DR PO SCH (08:38)
[2021-12-07] MEDS: FLUTICASONE/VILANTEROL 1 EACH BLST.W.DEV IH SCH (08:39)
[2021-12-07] MEDS: PROSOURCE / PROSTAT (PYXIS) 30 ML UDC PO SCH ×3 (08:40→17:19)
[2021-12-07] MEDS: THERAHONEY GEL 1.5 OZ TUBE TP SCH (08:41)
[2021-12-07] MEDS: DAKINS QUARTER STRENGTH (0.125%) 480 ML BOTTLE TOP SCH (08:41)
[2021-12-07] MEDS: DIVALPROEX SODIUM 250 MG TABLET.DR PO SCH ×2 (10:30→21:57)
[2021-12-07 12:00] VITALS: BP 104/57
--- NOTE | 2021-12-07 19:00 | NUR ---
MS RN CLOSING NOTE PATIENT LAYING IN BED, A/O X 4, TOLERATING WELL ON 4 LPM O2 VIA CANNULA WITH NO S/S OF RESPIRATORY DISTRESS. BREATHING EVEN AND UNLABORED WITH NO S/S OF PAIN OR DISCOMFORT AT THIS TIME. CRUZ MIDLINE #18 INTACT, CLEAN, AND FLUSHING WELL. GRANT CATHETER IN PLACE DRAINING CLEAR YELLOW URINE TO GRAVITY. PATIENT ALLOWED WOUND TREATMENT OF HIS BILATERAL LOWER EXTREMITIES DURING SHIFT, BUT HE REFUSED WOUND TREATMENT OF HIS SACRUM. PATIENT TURNED Q2H DURING SHIFT. SAFETY MEASURES IN PLACE: BED IN LOWEST LOCKED POSITION, SIDE RAILS UP X 2, CALL LIGHT WITHIN REACH. WILL ENDORSE TO FUSING MACHINE OPERATOR FOR BOZENA.
[2021-12-07 20:00] VITALS: BP 101/59
[2021-12-07] MEDS: oxyCODONE IR immediate release 5 MG PO PRN (21:56)
[2021-12-07] MEDS: SENNOSIDES 8.6 MG TABLET PO SCH (21:57)
[2021-12-07] MEDS: ACETAMINOPHEN 325 MG TABLET PO PRN (21:57)
[2021-12-07] MEDS: ENOXAPARIN SODIUM 40 MG/0.4 ML DISP.SYRIN SQ SCH (21:58)
[2021-12-08] MEDS: CEFEPIME 2 GM in IV D5W 100 ML IV SCH ×3 (04:38→21:38)
[2021-12-08 04:58] VITALS: BP 108/66
--- NOTE | 2021-12-08 07:20 | NUR ---
RN OPENING NOTES RECEIVED PATIENT IN BED, AWAKE, ALERT AND VERBALLY RESPONSIVE, NO SIGNS OF ACUTE DISTRESS NOTED. ON O2 @4LPM VIA N/C, NO SOB NOTED. SATURATION @100%. IV ACCESS RIGHT UPPER ARM MIDLINE #18G, INTACT AND PATENT, SALINE LOCKED. F/C INTACT DRAINING CLEAR YELLOW URINE. COLOSTOMY BAG INTACT. NO C/O PAIN OR DISCOMFORT AT THIS TIME. SAFETY MEASURE IN PLACE. BED IN LOWEST LOCKED POSITION, SR UP X2, CALL LIGHT PLACED WITHIN EASY REACH. WILL CONTINUE TO MONITOR PATIENT. Addendum: 12/08/21 at 1031 by ZULEMA ENAMORADO RN *LEFT UPPER ARM MIDLINE
[2021-12-08] MEDS: PANTOPRAZOLE 40 MG TABLET.DR PO SCH (07:54)
[2021-12-08] MEDS: DIVALPROEX SODIUM 250 MG TABLET.DR PO SCH ×2 (08:20→21:38)
[2021-12-08] MEDS: SODIUM CHLORIDE 1000 MG TABLET PO SCH (08:20)
[2021-12-08] MEDS: ENSURE ENLIVE 237 ML LIQUID (VANILLA) PO SCH ×2 (08:20→17:17)
[2021-12-08] MEDS: MULTIVITAMINS,THERAGRAN 1 UDTAB TABLET PO SCH (08:20)
[2021-12-08] MEDS: GUAIFENESIN LA 600 MG TABLET.SA PO SCH ×2 (08:20→21:38)
[2021-12-08] MEDS: DOXYCYCLINE HYCLATE (100 MG) 100 MG TABLET PO SCH ×2 (08:20→21:39)
[2021-12-08] MEDS: CALCIUM CARBONATE (1250) 500 MG TABLET PO SCH (08:20)
[2021-12-08] MEDS: ASCORBIC ACID 500 MG TABLET PO SCH (08:20)
[2021-12-08] MEDS: GABAPENTIN 300 MG CAPSULE PO SCH ×4 (08:20→21:38)
[2021-12-08] MEDS: ZINC SULFATE 220 MG CAPSULE PO SCH (08:20)
[2021-12-08] MEDS: POLYETHYLENE GLYCOL 3350 17 GM POWD.PACK PO SCH (08:21)
[2021-12-08] MEDS: QUETIAPINE FUMARATE 25 MG TABLET PO SCH ×2 (08:21→21:38)
[2021-12-08] MEDS: DULOXETINE HCL 30 MG CAPSULE.DR PO SCH (08:21)
[2021-12-08] MEDS: FOLIC ACID 1 MG TABLET PO SCH (08:21)
[2021-12-08] MEDS: PROSOURCE / PROSTAT (PYXIS) 30 ML UDC PO SCH ×3 (08:22→16:15)
[2021-12-08] MEDS: METOPROLOL TARTRATE 50 MG TABLET PO SCH ×2 (08:22→21:39)
[2021-12-08] MEDS: FLUTICASONE/VILANTEROL 1 EACH BLST.W.DEV IH SCH (08:27)
[2021-12-08] MEDS: DAKINS QUARTER STRENGTH (0.125%) 480 ML BOTTLE TOP SCH (08:27)
[2021-12-08] MEDS: THERAHONEY GEL 1.5 OZ TUBE TP SCH (09:04)
[2021-12-08] MEDS: oxyCODONE IR immediate release 5 MG PO PRN ×2 (09:58→15:08)
[2021-12-08 12:00] VITALS: BP 119/55
--- NOTE | 2021-12-08 18:32 | NUR ---
RN CLOSING NOTES PATIENT RESTING IN BED, AWAKE, NO SIGNS OF ACUTE DISTRESS NOTED. REMAINS ON O2 @4LPM VIA N/C, SATURATION @ 98%, NO SOB NOTED. IV ACCESS ON LEFT UPPER MIDLINE #18G, INTACT AND PATENT, SALINE LOCKED. NO SIGNS OF INFILTRATION NOTED. F/C AND COLOSTOMY BAG INTACT. ALL DUE MEDS GIVEN, TOLERATED WELL. WOUND TREATMENT DONE. ALL NEEDS ATTENDED TO. SAFETY MEASURES MAINTAINED. WILL ENDORSE TO NEXT SHIFT FOR CONTINUITY OF CARE.
--- NOTE | 2021-12-08 19:29 | NUR ---
RN OPENING NOTES RECEIVED CARE OF PATIENT WHILE PATIENT IN BED, A/O X4, ABLE TO VERBALIZE NEEDS. PATIENT IN NO DISCOMFORT OR PAIN AT THIS TIME. PATIENT ON O2 @4LPM VIA N/C, NO SOB NOTED, BREATHING EVEN AND UNLABORED, O2 SAT 97%. IV ACCESS RIGHT UPPER ARM MIDLINE #18G, INTACT AND PATENT, SALINE LOCKED. PATIENT NOTED WITH GRANT CATH, INTACT DRAINING CLEAR YELLOW URINE. COLOSTOMY BAG INTACT. NO SIGNIFICANT FINDINGS UPON INITIAL NURSING ASSESSMENTS. WILL PERFORM WOUND CARE ORDERED. SAFETY MEASURES IN PLACE. BED IN LOWEST LOCKED POSITION, SR UP X2, CALL LIGHT PLACED WITHIN EASY REACH. WILL CONTINUE TO MONITOR PATIENT.
[2021-12-08 20:00] VITALS: BP 108/64
[2021-12-08] MEDS: SENNOSIDES 8.6 MG TABLET PO SCH (21:38)
[2021-12-08] MEDS: ENOXAPARIN SODIUM 40 MG/0.4 ML DISP.SYRIN SQ SCH (21:41)
[2021-12-09] MEDS: oxyCODONE IR immediate release 5 MG PO PRN ×2 (02:07→21:29)
[2021-12-09 04:00] VITALS: BP 99/59
[2021-12-09] MEDS: CEFEPIME 2 GM in IV D5W 100 ML IV SCH (06:17)
[2021-12-09 08:00] VITALS: BP 103/54
--- NOTE | 2021-12-09 08:12 | NUR ---
RN OPENING NOTES Patient seen comfortably lying in bed, no apparent distress noted, no shortness of breath, respirations even and unlabored, no grimacing, denies any pain or discomfort at this time. Call light left within reach, safety precautions in place, brakes locked, side rails up X 2, will monitor closely for any changes.
[2021-12-09] MEDS: POLYETHYLENE GLYCOL 3350 17 GM POWD.PACK PO SCH (08:44)
[2021-12-09] MEDS: PANTOPRAZOLE 40 MG TABLET.DR PO SCH (08:44)
[2021-12-09] MEDS: DIVALPROEX SODIUM 250 MG TABLET.DR PO SCH ×2 (08:44→21:30)
[2021-12-09] MEDS: ENSURE ENLIVE 237 ML LIQUID (VANILLA) PO SCH ×3 (08:45→17:43)
[2021-12-09] MEDS: CALCIUM CARBONATE (1250) 500 MG TABLET PO SCH (08:45)
[2021-12-09] MEDS: QUETIAPINE FUMARATE 25 MG TABLET PO SCH ×2 (08:45→21:31)
[2021-12-09] MEDS: DULOXETINE HCL 30 MG CAPSULE.DR PO SCH (08:45)
[2021-12-09] MEDS: PROSOURCE / PROSTAT (PYXIS) 30 ML UDC PO SCH ×3 (08:46→16:07)
[2021-12-09] MEDS: ZINC SULFATE 220 MG CAPSULE PO SCH (08:46)
[2021-12-09] MEDS: MULTIVITAMINS,THERAGRAN 1 UDTAB TABLET PO SCH (08:46)
[2021-12-09] MEDS: GABAPENTIN 300 MG CAPSULE PO SCH ×4 (08:47→21:29)
[2021-12-09] MEDS: DOXYCYCLINE HYCLATE (100 MG) 100 MG TABLET PO SCH ×2 (08:47→21:29)
[2021-12-09] MEDS: ASCORBIC ACID 500 MG TABLET PO SCH (08:47)
[2021-12-09] MEDS: GUAIFENESIN LA 600 MG TABLET.SA PO SCH ×2 (08:47→21:31)
[2021-12-09] MEDS: FOLIC ACID 1 MG TABLET PO SCH (08:48)
[2021-12-09] MEDS: SODIUM CHLORIDE 1000 MG TABLET PO SCH (08:50)
[2021-12-09] MEDS: METOPROLOL TARTRATE 50 MG TABLET PO SCH ×2 (08:50→21:30)
[2021-12-09] MEDS: DAKINS QUARTER STRENGTH (0.125%) 480 ML BOTTLE TOP SCH (09:00)
[2021-12-09] MEDS: FLUTICASONE/VILANTEROL 1 EACH BLST.W.DEV IH SCH (09:00)
[2021-12-09] MEDS: THERAHONEY GEL 1.5 OZ TUBE TP SCH (09:46)
[2021-12-09 12:00] VITALS: BP 105/58
[2021-12-09 16:00] VITALS: BP 117/65
--- NOTE | 2021-12-09 18:41 | NUR ---
RN CLOSING NOTES Patient lying in bed, respirations even and unlabored, no shortness of breath, remained afebrile, no apparent distress noted, denies any pain or discomfort, no dizziness, no palpitation, no chest pain. All medications given per MD order, tolerating well. Gonsalez catheter noted to have yellowish output free from visible sediments, no hematuria, and no unusual odor noted in urine, no grimacing when bladder palpated, bladder non distended during shift. Wound care rendered as per MD order. All needs anticipated, kept clean and dry, aspiration precautions observed, frequent visual checks rendered, frequent repositioning done, call light left within reach, safety precautions in place, brakes locked, side rails up X 2, will endorse to next shift for continuity of care.
--- NOTE | 2021-12-09 19:30 | NUR ---
RN OPENING NOTES RECEIVED CARE OF PATIENT WHILE PATIENT IN BED, A/O X4, ABLE TO VERBALIZE NEEDS. PATIENT IN NO DISCOMFORT OR PAIN AT THIS TIME. PATIENT ON O2 THERAPY VIA NC AT 4L/MIN, BREATHING EVEN AND UNLABORED, O2 SAT 98%. IV ACCESS RIGHT UPPER ARM MIDLINE #18G, INTACT AND PATENT, SALINE LOCKED. F/C INTACT DRAINING CLEAR YELLOW URINE. COLOSTOMY BAG INTACT. NO SIGNIFICANT FINDINGS UPON INITIAL NURSING ASSESSMENTS. SAFETY MEASURE IN PLACE. BED IN LOWEST LOCKED POSITION, SR UP X2, CALL LIGHT PLACED WITHIN EASY REACH. WILL CONTINUE TO MONITOR PATIENT.
[2021-12-09 20:00] VITALS: BP 100/60
[2021-12-09] MEDS: ENOXAPARIN SODIUM 40 MG/0.4 ML DISP.SYRIN SQ SCH (21:28)
[2021-12-09] MEDS: SENNOSIDES 8.6 MG TABLET PO SCH (21:30)
[2021-12-10 04:00] VITALS: BP 110/72
[2021-12-10] MEDS: oxyCODONE IR immediate release 5 MG PO PRN (04:00)
--- NOTE | 2021-12-10 07:18 | NUR ---
RN CLOSING NOTES ENDORSED CARE OF PATIENT TO AM NURSE IN STABLE CONDITIONS. ALL PATIENT NEEDS MET THROUGHOUT SHIFT, ALL DUE MEDS GIVEN. NO SIGNIFICANT FINDINGS UPON ALL NURSING ASSESSMENTS. WOUND CARE DONE ORDERED. SAFETY MEASURES KEPT IN PLACE ACCORDING TO HOSPITAL PROTOCOLS. ENDORSE TO AM NURSE FOR BOZENA.
--- NOTE | 2021-12-10 07:36 | NUR ---
RN OPENING NOTE PATIENT IN BED RESTING, A/O X4, ABLE TO VERBALIZE NEEDS. PATIENT IN NO DISCOMFORT OR PAIN AT THIS TIME. PATIENT ON O2 THERAPY VIA NC AT 4L/MIN, BREATHING EVEN AND UNLABORED, O2 SAT 98%. IV ACCESS RIGHT UPPER ARM MIDLINE #18G, INTACT AND PATENT, SALINE LOCKED. F/C INTACT DRAINING CLEAR YELLOW URINE. COLOSTOMY BAG INTACT. NO SIGNIFICANT FINDINGS UPON INITIAL NURSING ASSESSMENTS. SAFETY MEASURE IN PLACE. BED IN LOWEST LOCKED POSITION, SR UP X2, CALL LIGHT PLACED WITHIN EASY REACH. WILL CONTINUE TO MONITOR PATIENT.
[2021-12-10] MEDS: ENSURE ENLIVE 237 ML LIQUID (VANILLA) PO SCH ×2 (08:49→11:50)
[2021-12-10] MEDS: PANTOPRAZOLE 40 MG TABLET.DR PO SCH (08:51)
[2021-12-10] MEDS: THERAHONEY GEL 1.5 OZ TUBE TP SCH (08:52)
[2021-12-10] MEDS: FLUTICASONE/VILANTEROL 1 EACH BLST.W.DEV IH SCH (08:52)
[2021-12-10] MEDS: POLYETHYLENE GLYCOL 3350 17 GM POWD.PACK PO SCH (08:52)
[2021-12-10] MEDS: DIVALPROEX SODIUM 250 MG TABLET.DR PO SCH (08:53)
[2021-12-10] MEDS: QUETIAPINE FUMARATE 25 MG TABLET PO SCH (08:53)
[2021-12-10] MEDS: MULTIVITAMINS,THERAGRAN 1 UDTAB TABLET PO SCH (08:53)
[2021-12-10] MEDS: ASCORBIC ACID 500 MG TABLET PO SCH (08:53)
[2021-12-10] MEDS: ZINC SULFATE 220 MG CAPSULE PO SCH (08:53)
[2021-12-10] MEDS: GABAPENTIN 300 MG CAPSULE PO SCH ×2 (08:53→12:26)
[2021-12-10] MEDS: DULOXETINE HCL 30 MG CAPSULE.DR PO SCH (08:53)
[2021-12-10] MEDS: DAKINS QUARTER STRENGTH (0.125%) 480 ML BOTTLE TOP SCH (08:54)
[2021-12-10] MEDS: FOLIC ACID 1 MG TABLET PO SCH (08:54)
[2021-12-10] MEDS: DOXYCYCLINE HYCLATE (100 MG) 100 MG TABLET PO SCH (08:54)
[2021-12-10] MEDS: GUAIFENESIN LA 600 MG TABLET.SA PO SCH (08:54)
[2021-12-10] MEDS: CALCIUM CARBONATE (1250) 500 MG TABLET PO SCH (08:54)
[2021-12-10] MEDS: METOPROLOL TARTRATE 50 MG TABLET PO SCH (08:55)
[2021-12-10] MEDS: SODIUM CHLORIDE 1000 MG TABLET PO SCH (08:57)
[2021-12-10] MEDS: PROSOURCE / PROSTAT (PYXIS) 30 ML UDC PO SCH ×2 (08:59→12:25)
--- NOTE | 2021-12-10 09:00 | NUR ---
RN NOTE PT REMAINED STABLE THROUGHOUT SHIFT. ALL AM MEDS GIVEN PER MD ORDER. ALL SAFETY MEASURES NOTED AND ACCOUNTED FOR. CALL LIGHT WITHIN REACH. CARE TRANSFERRED TO EMMANUEL HYDE.
[2021-12-10] MEDS ORDERED: SILV100S2 TP (10:54)
[2021-12-10] MEDS ORDERED: LACT-246 PO (10:54)
[2021-12-10] MEDS ORDERED: DOXY100T2 PO (10:54)
[2021-12-10] MEDS ORDERED: SODI100037 PO (10:54)
[2021-12-10] MEDS ORDERED: PANT40TA49 PO (10:54)
[2021-12-10 12:00] VITALS: BP 93/56
--- NOTE | 2021-12-10 14:13 | NUR ---
RN NOTE REPORT GIVEN TO ALANNA VITAL AT [facility].
--- NOTE | 2021-12-10 15:05 | NUR ---
RN NOTE PATIENT LEFT FACILITY VIA AMBULANCE ORDERED. REPORT GIVEN TO [facility]. TALKED WITH ALANNA VITAL AND HER SUPERIOR REGARDING PT'S HR IN THE 110S AT TIME OF DISCHARGE. PHYSICIAN AT [facility] OKAY WITH ACCEPTING PT STILL. MIDLINE REMOVED.
== END 2021-12-10 15:05 | DRG 720 ==
LOC: ER 14:59 → TELE1 22:13 → MEDSG1 11-27 17:18
PROVIDERS: ADMIT Student in an Organized Health Care Education/Training Program; ATTEND Nurse Practitioner Acute Care
PROC: 30233N1 Transfusion of Nonautologous Red Blood Cells into Peripheral Vein, Percutaneous Approach (ICD-10-PCS; principal; 2021-11-23)
PROC: 05H533Z Insertion of Infusion Device into Right Subclavian Vein, Percutaneous Approach (ICD-10-PCS; 2021-11-23)
PROC: B546ZZA Ultrasonography of Right Subclavian Vein, Guidance (ICD-10-PCS; 2021-11-23)
PROC: 05H533Z Insertion of Infusion Device into Right Subclavian Vein, Percutaneous Approach (ICD-10-PCS; 2021-12-02)
PROC: B546ZZA Ultrasonography of Right Subclavian Vein, Guidance (ICD-10-PCS; 2021-12-02)
PROC: 05H633Z Insertion of Infusion Device into Left Subclavian Vein, Percutaneous Approach (ICD-10-PCS; 2021-12-06)
PROC: B547ZZA Ultrasonography of Left Subclavian Vein, Guidance (ICD-10-PCS; 2021-12-06)
DX: A41.9 Sepsis, unspecified organism (principal); E43 Unspecified severe protein-calorie malnutrition; L89.154 Pressure ulcer of sacral region, stage 4; L89.210 Pressure ulcer of right hip, unstageable; R53.2 Functional quadriplegia; L89.324 Pressure ulcer of left buttock, stage 4; E86.1 Hypovolemia; L89.314 Pressure ulcer of right buttock, stage 4; E11.40 Type 2 diabetes mellitus with diabetic neuropathy, unspecified; R00.0 Tachycardia, unspecified; E11.51 Type 2 diabetes mellitus with diabetic peripheral angiopathy without gangrene; E87.1 Hypo-osmolality and hyponatremia; E88.09 Other disorders of plasma-protein metabolism, not elsewhere classified; D75.839 Thrombocytosis, unspecified; Z68.25 Body mass index [BMI] 25.0-25.9, adult; Z93.3 Colostomy status; I10 Essential (primary) hypertension; F41.9 Anxiety disorder, unspecified; E04.1 Nontoxic single thyroid nodule; Z68.24 Body mass index [BMI] 24.0-24.9, adult; J44.9 Chronic obstructive pulmonary disease, unspecified; D63.8 Anemia in other chronic diseases classified elsewhere; L97.829 Non-pressure chronic ulcer of other part of left lower leg with unspecified severity; L97.429 Non-pressure chronic ulcer of left heel and midfoot with unspecified severity; L97.329 Non-pressure chronic ulcer of left ankle with unspecified severity; L97.819 Non-pressure chronic ulcer of other part of right lower leg with unspecified severity; L97.419 Non-pressure chronic ulcer of right heel and midfoot with unspecified severity; L97.319 Non-pressure chronic ulcer of right ankle with unspecified severity; L97.519 Non-pressure chronic ulcer of other part of right foot with unspecified severity; I70.248 Atherosclerosis of native arteries of left leg with ulceration of other part of lower leg; I70.244 Atherosclerosis of native arteries of left leg with ulceration of heel and midfoot; I70.243 Atherosclerosis of native arteries of left leg with ulceration of ankle; I70.238 Atherosclerosis of native arteries of right leg with ulceration of other part of lower leg; I70.234 Atherosclerosis of native arteries of right leg with ulceration of heel and midfoot; I70.233 Atherosclerosis of native arteries of right leg with ulceration of ankle; I70.235 Atherosclerosis of native arteries of right leg with ulceration of other part of foot; E11.69 Type 2 diabetes mellitus with other specified complication; M46.28 Osteomyelitis of vertebra, sacral and sacrococcygeal region; M48.02 Spinal stenosis, cervical region; G89.29 Other chronic pain; F31.64 Bipolar disorder, current episode mixed, severe, with psychotic features; F63.81 Intermittent explosive disorder; E87.6 Hypokalemia; Z20.822 Contact with and (suspected) exposure to COVID-19
CPT/HCPCS: 36410; 36415; 71045-TC; 76536-TC; 80048-TC; 80061-TC; 80076-TC; 80202-TC; 82728-TC; 83540-TC; 83735-TC; 83880; 84100-TC; 84155; 84165; 84439-TC; 84443-TC; 84484-TC; 85025-TC; 85378-TC; 85730-TC; 86850-TC; 87081-TC; 93307-TC; 93971-TC; A4217; A6253; A6403; C9803; G0378; J0692; J1650; J1940; J2270; J2405; J2543; J3370; J3475; J3490; J7030; J7050; J7060; P9016; Q9967